=== PATIENT | female | born 1990 | race Hispanic/Latino ===

== ENCOUNTER 2017-10-29 15:07 | Inpatient (IN) | payer OTHER ==
[~2017-10-29] VITALS: Ht 157.5 cm; Wt 117.0 kg
[~2017-10-29 15:07] MED LIST: ASPIR 8181 MG PO; HEPARIN SO5000 UNIT/ IV; HYDROCODON-ACE1 EA10 PO; METFORMIN HCL1000 MG PO
[2017-10-29 16:28] LABS: BILIRUBIN,URINE 1+ (NEGATIVE); KETONES,URINE 3+ (NEGATIVE); LEUKOCYTE ESTERASE ,URINE 1+ (NEGATIVE); NITRITE,URINE NEGATIVE (NEGATIVE); URINE UROBILINOGEN 1 mg/dL (0.2 - 1)
[2017-10-29 16:30] LABS: CLARITY,URINE SL CLOUDY (CLEAR); COLOR,URINE AMBER (YELLOW); PROTEIN,URINE DIPSTICK TRACE (NEGATIVE)
[2017-10-29 16:31] LABS: PREGNANCY TEST, URINE NEGATIVE (NEGATIVE)
[2017-10-29 16:40] LABS: RBC,URINE >50 /HPF (0-5); WBC,URINE (MAN) 0-5 /HPF (0-5)
[2017-10-29 16:42] LABS: BACTERIA,URINE MANY /HPF; EPITHELIAL CELLS,URINE MODERATE /LPF; TRANSITIONAL EPI CELLS,URINE FEW
[2017-10-29] MEDS ORDERED: MORPHINE SULFATE 2 MG/ML SYR IV STA (16:55)
[2017-10-29] MEDS ORDERED: SODIUM CHLORIDE 0.9% 1000ML 1,000 ML IV STA ×2 (17:04→21:25)
[2017-10-29] MEDS ORDERED: HYDROMORPHONE 2MG/ML INJ IV ONE ×2 (17:15→19:15)
[2017-10-29 17:50] LABS: BASOPHILS % 0.3 % (0.0-1.0); EOSINOPHILS % 0.2 % (0.0-6.0); HEMATOCRIT 42.1 % (34.2-44.1); HEMOGLOBIN 14.2 g/dL (12.0-16.0); LYMPHOCYTES # (AUTO) 1.7 (1.0-3.2); LYMPHOCYTES % 19.7 % (18.0-39.1); MEAN CORPUSCULAR HEMOGLOBIN 29.7 pg (28-32); MEAN CORPUSCULAR HGB CONC 33.7 g/dL (31-35); MEAN CORPUSCULAR VOLUME 88.1 fL (81-99); MONOCYTES # (AUTO) 0.8 (0.2-0.8); MONOCYTES % 9.4 % (4.4-11.3); NEUTROPHILS % 68.8 % (38.7-80.0); PLATELET COUNT 293 x10e3/uL (140-360); RED BLOOD COUNT 4.78 x10e6/uL (3.6-5.1); RED CELL DISTRIBUTION WIDTH 13.2 % (11.7-14.4)
[2017-10-29 18:04] LABS: ALBUMIN 4.6 g/dL (3.5-5.0); ALBUMIN/GLOBULIN RATIO 1.2 (0.8-2.0); ANION GAP 16.8 mmol/L (8-16); CALCIUM 10.2 mg/dL (8.4-10.2); CREATININE, SERUM 1.15 mg/dL (0.57-1.11); POTASSIUM 3.8 mmol/L (3.5-5.1)
--- NOTE | 2017-10-29 18:21 | Diagnostic Imaging Report ---
PROCEDURE: CT ABDOMEN AND PELVIS WITHOUT CONTRAST TECHNIQUE: The abdomen and pelvis were scanned utilizing a multidetector helical scanner from the diaphragm to the lesser trochanter after the oral administration of water. No IV contrast was administered per protocol. Coronal and sagittal multiplanar reformations were obtained. COMPARISON: Patients [facility], CT, CT ABDOMEN/PELVIS , 01/21/2014, 22:23. INDICATIONS: RIGHT SIDE FLANK PAIN, STONE PROTOCOL FINDINGS: ABSENCE OF INTRAVENOUS CONTRAST DECREASES SENSITIVITY FOR DETECTION OF FOCAL LESIONS AND VASCULAR PATHOLOGY. LOWER THORAX: Unremarkable HEPATOBILIARY: A wedge-shaped hypodensity along the falciform ligament likely represents focal fatty infiltration (series 3, image 47). No other focal lesions. No biliary ductal dilation. Gallbladder is unremarkable. SPLEEN: No splenomegaly. PANCREAS: No focal masses or ductal dilatation. ADRENALS: No adrenal nodules. KIDNEYS/URETERS: 3 mm calculus in the distal right ureter just proximal to the right UVJ (series 3, image 140), which results in mild right hydronephrosis. Punctate, nonobstructing calculus in the interpolar region of the right kidney (series 3, image 47 and coronal image 82). No other renal or ureteral calculi. No left hydronephrosis or obstruction. 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 No renal contour abnormalities. PELVIC ORGANS/BLADDER: Bladder is unremarkable, without focal lesions or calculi. The uterus is unremarkable. No adnexal masses.. PERITONEUM / RETROPERITONEUM: No free air or fluid. LYMPH NODES: No lymphadenopathy. VESSELS: Unremarkable for noncontrast exam. GI TRACT: No bowel dilation or evidence of obstruction. No pericolonic inflammatory changes. Postoperative changes in the stomach. BONES AND SOFT TISSUES: No aggressive lytic lesion. Soft tissues are unremarkable.. IMPRESSION: 1. 3 mm mildly obstructing calculus in the distal right ureter just proximal to the right UVJ, which results in mild right hydronephrosis. 2. Punctate nonobstructing calculus in the interpolar region of the right kidney. No other renal or ureteral calculi. No left hydronephrosis or obstruction. 3. Increased density of the left renal pyramids likely representing Vernon's plaques, which are predisposing factors for renal stone formation. Chuck Smalls M.D. Dictated by: Chuck Smalls M.D. on 10/29/2017 at 18:30 Electronically approved by: Chuck Smalls M.D. on 10/29/2017 at 18:30
[2017-10-29] MEDS ORDERED: ONDANSETRON HCL INJ 2 MG/ML VIAL IV STA (19:04)
[2017-10-29] MEDS ORDERED: PROMETHAZINE 12.5MG/ NACL 0.9% 12.5 MG/50 ML BAG IV PRN (20:30)
[2017-10-29] MEDS: CEFTRIAXONE SOD 1 GM VIAL IV SCH (20:37)
[2017-10-29] MEDS: SODIUM CHLORIDE 0.9% 1000ML 1,000 ML IV SCH (20:37)
[2017-10-29] MEDS ORDERED: DILTIAZEM HCL 5 MG/ML 5 ML VIAL IV STA ×2 (21:25→22:01)
[2017-10-29 22:00] LABS: INR 1.05; PROTHROMBIN TIME 14.2 seconds (11.9-14.5)
[2017-10-29 22:01] LABS: PARTIAL THROMBOPLASTIN TIME 26.1 seconds (23.8-35.5)
[2017-10-29 22:08] LABS: CREATINE KINASE 65 IU/L (29-168); MAGNESIUM 1.8 MG/DL (1.3-2.1)
--- NOTE | 2017-10-29 22:13 | Diagnostic Imaging Report ---
EXAM: CHEST SINGLE (PORTABLE), AP 1 view ORDER DATE: 10/29/2017 9:25 PM Time stamp on exam: 2138 hours INDICATION: New onset A. fib COMPARISON: None FINDINGS: LINES/TUBES: None LUNGS: No consolidations or edema. Mild bibasilar atelectasis. PLEURA: No effusions or pneumothorax. HEART AND MEDIASTINUM: Normal size and contour. BONES AND SOFT TISSUES: No acute findings. IMPRESSION: Mild bibasilar atelectasis. Signed by: Dr. Hui Villalobos M.D. on 10/29/2017 10:09 PM
[2017-10-29] MEDS ORDERED: DILTIAZEM HCL 100 ML IV SCH (22:15)
[2017-10-29 22:29] LABS: THYROID STIMULATING HORMONE 5.253 uIU/mL (0.350-4.940)
[2017-10-29] MEDS ORDERED: METOPROLOL TARTRATE INJ 1 MG/ML VIAL IV ONE (22:30)
--- OUTSIDE RECORDS SUMMARY | 2017-10-29 22:35 | XMS REPORT ---
Author Author [facility] Address Unknown Phone Unavailable Care Team Providers Care Shells Inspector Name Role Phone NASREEN MILLER Unavailable Unavailable Problems This patient has no known problems. Allergies, Adverse Reactions, Alerts This patient has no known allergies or adverse reactions. Medications This patient has no known medications. Results Test Description Test Time Test Comments Text Results Atomic Results Result Comments CHEST SINGLE (PORTABLE) [place] [address] Patient Name: CAROLYN MOSES I MR #: [id number] : 1990 Age/Sex: 27/F Req #: [id number] Adm Physician: Ordered by: NASREEN MILLER MD Report #: [id number] Location: ER Room/Bed: Procedure: [id number] DX/CHEST SINGLE (PORTABLE) Exam Date: Exam Time: REPORT STATUS: Signed EXAM: CHEST SINGLE (PORTABLE ), AP 1 view ORDER DATE: 10/29/2017 9:25 PM Time stamp on exam: 2138 hours INDICATION: New onset A. fib COMPARISON: None FINDINGS: LINES/TUBES: None LUNGS: No consolidations or edema. Mild bibasilar atelectasis. PLEURA: No effusions or pneumothorax. HEART AND MEDIASTINUM: Normal size and contour. BONES AND SOFT TISSUES: No acute findings. IMPRESSION: Mild bibasilar atelectasis. Signed by: Dr. Augusto Villalobos M.D. on 10/29/2017 10:09 PM Dictated By: AUGUSTO VILLALOBOS MD 08 Transcribed By: IVORY on 2208 COPY TO: NASREEN MILLER MD CT ABDOMEN/PELVIS WO [place] [address] Patient Name: CAROLYN MOSES I MR #: [id number] : 1990 Age/Sex: 27/F Req #: [id number] Adm Physician: Ordered by: JOSH THOMSAON Report #: [id number] Location: ER Room/Bed: Procedure: [id number] CT/CT ABDOMEN/PELVIS WO Exam Date: Exam Time: REPORT STATUS: Signed PROCEDURE: CT ABDOMEN AND PELVIS WITHOUT CONTRAST TECHNIQUE: The abdomen and pelvis were scanned utilizing a multidetector helical scanner from the diaphragm to the lesser trochanter after the oral administration of water. No IV contrast was administered per protocol. Coronal and sagittal multiplanar reformations were obtained. COMPARISON: [facility], CT, CT ABDOMEN/ PELVIS WO, 01/21/2014, 22:23. INDICATIONS: RIGHT SIDE FLANK PAIN, STONE PROTOCOL FINDINGS: ABSENCE OF INTRAVENOUS CONTRAST DECREASES SENSITIVITY FOR DETECTION OF FOCAL LESIONS AND VASCULAR PATHOLOGY. LOWER THORAX: Unremarkable HEPATOBILIARY: A wedge-shaped hypodensity along the falciform ligament likely represents focal fatty infiltration ( series 3, image 47). No other focal lesions. No biliary ductal dilation. Gallbladder is unremarkable. SPLEEN: No splenomegaly. PANCREAS: No focal masses or ductal dilatation. ADRENALS: No adrenal nodules. KIDNEYS/ URETERS: 3 mm calculus in the distal right ureter just proximal to the right UVJ (series 3, image 140), which results in mild right hydronephrosis. Punctate, nonobstructing calculus in the interpolar region of the right kidney (series 3, image 47 and coronal image 82). No other renal or ureteral calculi. No left hydronephrosis or obstruction. 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 No renal contour abnormalities. PELVIC ORGANS/BLADDER: Bladder is unremarkable, without focal lesions or calculi. The uterus is unremarkable. No adnexal masses.. PERITONEUM / RETROPERITONEUM: No free air or fluid. LYMPH NODES : No lymphadenopathy. VESSELS: Unremarkable for noncontrast exam. GI TRACT: No bowel dilation or evidence of obstruction. No pericolonic inflammatory changes. Postoperative changes in the stomach. BONES AND SOFT TISSUES: No aggressive lytic lesion. Soft tissues are unremarkable.. IMPRESSION: 1. 3 mm mildly obstructing calculus in the distal right ureter just proximal to the right UVJ, which results in mild right hydronephrosis. 2. Punctate nonobstructing calculus in the interpolar region of the right kidney. No other renal or ureteral calculi. No left hydronephrosis or obstruction. 3. Increased density of the left renal pyramids likely representing Vernon's plaques, which are predisposing factors for renal stone formation. Oli Smalls M.D. Dictated by: Oli Smalls M.D. on 10/29/2017 at 18:30 Electronically approved by: Oli Smalls M.D. on 10/29/2017 at 18:30 Dictated By: OLI SMALLS MD 1830 Transcribed By: MELIDA on 10/29/17 1830 COPY TO: JOSH THOMASON
[2017-10-29] MEDS ORDERED: SODIUM CHLORIDE 0.9% 250ML 250 ML ONE (23:35)
[2017-10-29] MEDS ORDERED: DILTIAZEM HCL IV 5MG/ML 25 ML VIAL ONE (23:36)
[2017-10-30] MEDS: SODIUM CHLORIDE 0.9% 1000ML 1,000 ML IV SCH ×2 (00:10→07:45)
[2017-10-30] MEDS ORDERED: DILTIAZEM HCL IV SCH (01:00)
[2017-10-30] MEDS ORDERED: SODIUM CHLORIDE 0.9% IV SCH (01:00)
[2017-10-30] MEDS ORDERED: METOPROLOL TARTRATE INJ 1 MG/ML VIAL IV ONE (01:30)
[2017-10-30] MEDS ORDERED: METOPROLOL TARTRATE 25 MG TAB PO ONE (01:30)
[2017-10-30] MEDS ORDERED: AMIODARONE HCL 150MG 100 ML IV ONE (02:00)
[2017-10-30] MEDS ORDERED: HEPARIN SOD (PORCINE) 5,000 UNIT/ML VIAL IV ONE (02:00)
[2017-10-30] MEDS ORDERED: DIGOXIN INJ 0.25 MG/ML 2 ML AMP IV ONE ×2 (02:00→11:00)
[2017-10-30] MEDS ORDERED: ASPIRIN 81 MG CHEW TAB PO ONE (02:00)
[2017-10-30] MEDS ORDERED: HEPARIN 25,000U/0.45% NS 250ML 25,000 UNIT in SODIUM CHLORIDE 0.9% 250ML 0 ML IV SCH (02:00)
[2017-10-30] MEDS ORDERED: AMIODARONE HCL 100 ML IV ONE (02:28)
[2017-10-30] MEDS ORDERED: AMIODARONE 900MG 500 ML IV SCH ×2 (02:30→08:30)
[2017-10-30] MEDS: ONDANSETRON HCL INJ 2 MG/ML VIAL IV PRN ×4 (03:08→14:00)
[2017-10-30] MEDS: HYDROMORPHONE 2MG/ML INJ IV PRN ×4 (03:08→14:25)
[2017-10-30 05:25] LABS: BASOPHILS % 0.4 % (0.0-1.0); EOSINOPHILS # (AUTO) 0.1 (0.0-0.4); EOSINOPHILS % 0.9 % (0.0-6.0); HEMATOCRIT 32.5 % (34.2-44.1); HEMOGLOBIN 10.7 g/dL (12.0-16.0); LYMPHOCYTES # (AUTO) 1.7 (1.0-3.2); LYMPHOCYTES % 21.1 % (18.0-39.1); MEAN CORPUSCULAR HEMOGLOBIN 29.7 pg (28-32); MEAN CORPUSCULAR HGB CONC 32.9 g/dL (31-35); MEAN CORPUSCULAR VOLUME 90.3 fL (81-99); MONOCYTES # (AUTO) 0.9 (0.2-0.8); MONOCYTES % 11.9 % (4.4-11.3); NEUTROPHILS # (AUTO) 5.2 (2.1-6.9); NEUTROPHILS % 65.3 % (38.7-80.0); PLATELET COUNT 208 x10e3/uL (140-360); RED CELL DISTRIBUTION WIDTH 13.2 % (11.7-14.4)
[2017-10-30 05:43] LABS: CREATINE KINASE 60 IU/L (29-168)
[2017-10-30 05:45] LABS: ALANINE AMINOTRANSFERASE 18 IU/L (0-55); ALBUMIN 3.2 g/dL (3.5-5.0); ALBUMIN/GLOBULIN RATIO 1.2 (0.8-2.0); ALKALINE PHOSPHATASE 86 IU/L (40-150); ANION GAP 10.8 mmol/L (8-16); BLOOD UREA NITROGEN 13 mg/dL (7-26); BUN/CREATININE RATIO 13 (6-25); CALCIUM 8.3 mg/dL (8.4-10.2); CARBON DIOXIDE 19 mmol/L (22-29); CHLORIDE 114 mmol/L (98-107); CREATININE, SERUM 1.04 mg/dL (0.57-1.11); EST GLOMERULAR FILTRATION RATE > 60 ML/MIN (60-); GLUCOSE 108 mg/dL (74-118); POTASSIUM 3.8 mmol/L (3.5-5.1); SODIUM 140 mmol/L (136-145)
[2017-10-30] MEDS: CEFTRIAXONE SOD 1 GM VIAL IV SCH ×2 (07:45→20:43)
[2017-10-30] MEDS ORDERED: APIXAB 2.5 MG TABLET PO SCH (11:00)
[2017-10-30] MEDS ORDERED: AMIODARONE HCL 150 MG/100 ML BAG IV ONE ×2 (11:00→12:00)
--- NOTE | 2017-10-30 14:59 | Consultation ---
DATE OF CONSULTATION: October 30, 2017 CARDIOLOGY CONSULTATION REASON FOR CONSULTATION: Atrial fibrillation. HISTORY OF PRESENT ILLNESS: Ms. Cox is a 27-year-old female with a history of kidney stones, who comes in with abdominal pain consistent with a kidney stone as diagnosed by her CAT scan. While in the emergency room, she converted to rapid atrial fibrillation, rates as high as 200 beats per minute. She had palpitations and some chest tightness with this. She has no past history of heart disease or atrial fibrillation in her or her family. PAST MEDICAL HISTORY: Kidney stones. SOCIAL HISTORY: Patient does not smoke or drink. 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 ALLERGIES: DRUG ALLERGIES INCLUDE TRAMADOL. REVIEW OF SYSTEMS: Negative except as dictated in the history of present illness. PHYSICAL EXAMINATION: VITALS: Afebrile, heart rate 100, blood pressure 128/79, and O2 sats 98%. CARDIOVASCULAR: Irregularly irregular rhythm. No murmurs. LUNGS: Clear to auscultation bilaterally. ABDOMEN: Soft. Diffusely tender. LABORATORY DATA: Hemoglobin is 10.7. Creatinine 1.04. Cardiac enzymes are negative. TSH is 5.2. Chest x-ray shows no acute abnormalities besides mild bibasilar atelectasis. Electrocardiogram and telemetry show atrial fibrillation. ASSESSMENT: Atrial fibrillation with rapid ventricular response. RECOMMENDATIONS: Ms. Cox has had persistent atrial fibrillation. She will be anticoagulated with Eliquis in addition to the rate and rhythm control with amiodarone and beta-tigist as well as digoxin. Hopefully, she will convert to sinus rhythm. If she does not convert to sinus rhythm in the next 24 hours, she will require transesophageal echocardiogram with electrical cardioversion. This was discussed with the patient. I thank Dr. Rico for this consultation. Job#: [id number] VAS
[2017-10-30 15:59] LABS: CREATINE KINASE 67 IU/L (29-168)
[2017-10-30] MEDS ORDERED: APIXABAN 5 MG TABLET PO SCH (17:00)
[2017-10-30] MEDS: FAMOTIDINE 20 MG TAB PO SCH (17:21)
[2017-10-30] MEDS: METOPROLOL TARTRATE 25 MG TAB PO SCH (17:21)
--- NOTE | 2017-10-30 17:29 | Diagnostic Imaging Report ---
EXAM: Abdomen, one view INDICATION: Pain. COMPARISON: None available. FINDINGS: LINES: None. Bowel: No air fluid levels.. No pneumoperitoneum.. Moderate amount of retained feces and air are noted in the colon and rectum. No calcifications project over the renal shadows, expected course of the ureters bilaterally, and bladder. Phleboliths are present in the pelvis Soft tissues: Normal. Bones: No acute osseous abnormality. Impression: No acute radiographic abnormality. Signed by: Dr. Rivera Whitney M.D. on 10/30/2017 5:26 PM
[2017-10-30] MEDS: APIXABAN 5 MG TABLET PO SCH (17:51)
--- NOTE | 2017-10-30 17:59 | History and Physical ---
The patient goes to [facility]. CHIEF COMPLAINT: Right flank. HISTORY OF PRESENT ILLNESS: Ms. Cox is a 27-year-old lady morbidly obese who presents with right flank pain for several hours prior to admission which she says is very similar to what she has felt before with a previous kidney stone. After the patient received some Rocephin and some pain medication, she converted into atrial fibrillation with rapid ventricular response with heart rate as high as 160. She was given metoprolol, digoxin, and amiodarone, remains in AFib. Her last rate was 88, still irregularly irregular. REVIEW OF SYSTEMS: She has had some fever and chills in the last 24 hours. She denies weight loss. She denies sinus congestion or sore throat. She denies chest pain or palpitations other than what has occurred here in the ER. She now is having palpitations. She denies shortness of breath, wheezing, or cough. She denies abdominal pain, nausea, vomiting, or melena. She does have right flank pain and denies dysuria. She denies bleeding or bruising. She denies joint pain or swelling. She denies headache, vertigo, or loss of consciousness. She denies depression, agitation, homicide, or suicidal ideation. PAST MEDICAL HISTORY: Significant for previous kidney stone and polycystic ovary syndrome. MEDICATIONS: Aspirin 81 mg daily and metformin 1000 mg twice daily. PAST SURGICAL HISTORY: She has a history of left salpingectomy a few years ago. She has also had vertical gastric sleeve for obesity. 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 ALLERGIES: SHE HAS A STATED ALLERGY TO TRAMADOL AND CINNAMON. FAMILY HISTORY: Unremarkable. SOCIAL HISTORY: The patient is . Sami is her primary language. She does not smoke, drink, or use illegal drugs. She works in a doctor's office. She is independently functioning. PHYSICAL EXAM PSYCHIATRIC: She is awake, alert, and oriented x3 with normal mood and affect. CONSTITUTIONAL: She is morbidly obese with a BMI of 42.2 for a weight of 231 pounds. She is in no acute distress. VITAL SIGNS: Blood pressure 109/44, initially was 130/80. Pulse 88 and irregularly irregular. She had a max heart rate of 165 earlier this morning. She has a respiratory rate of 16. O2 sat 100% on room air. Temperature 98.2. HEENT: Her head is atraumatic. Her eyes are anicteric with clear conjunctiva. Ears and nares are without erythema or discharge. Oropharynx is clear. NECK: Supple, with no mass or thyromegaly. LYMPHATIC SYSTEM: She has no palpable cervical, axillary, or inguinal adenopathy. CARDIOVASCULAR: Her heart has an irregularly irregular rhythm. Heart rate is currently about 88 in AFib on the monitor. She has no murmur. She has no carotid bruit. She has no peripheral edema. She has palpable dorsal pedal pulses. RESPIRATORY: Clear to auscultation and percussion with normal respiratory effort. GASTROINTESTINAL: Her abdomen is soft without organomegaly, masses, or tenderness. She does have some tenderness in the right costovertebral angle. CUTANEOUS: Her skin is warm to touch with no rash or skin breakdown. MUSCULOSKELETAL: Joints are normal in alignment without erythema or swelling. She has no calf tenderness. NEUROLOGIC: Nonfocal with intact cranial nerves and no motor or sensory deficits. DIAGNOSTIC STUDIES: Chest x-ray shows bibasilar atelectasis. CT of the abdomen shows a 3-mm partially obstructing distal right ureteral stone with some hydronephrosis. Her UA has greater than 50 red cells, 0 to 5 white cells, many bacteria, and 1+ leukocyte esterase. Her echocardiogram showed normal chamber sizes, normal valvular function, and normal wall motion with a normal ejection fraction of 60%. Her EKG shows AFib with rapid ventricular response at 157. D-dimer is. 0.38 which is normal. The rest of her coags are normal. Her chemistry profile showed normal electrolytes. CO2 21, glucose 97, creatinine 1.15, and BUN 15 with calcium 10.2 and GFR of 56. Transaminases, bilirubin, and alk phos are normal. Magnesium is 1.8. CBC shows a white count of 8.71 with 69% neutrophils and 20% lymphocytes, hemoglobin 14.2, hematocrit 42.1, and platelet count 293,000. Lactic acid 19.2 which is normal. Troponin less than 0.001 and less than 0.001. TSH 5.253 which is slightly elevated. IMPRESSION AND PLAN 1. Right distal obstructing ureteral calculi. The patient is getting IV fluids. The stone is likely to pass given time. She is getting IV pain medication, p.o. Flomax and urology has been consulted and is following the patient. 2. New-onset atrial fibrillation with rapid ventricular response. The patient has been started on IV amiodarone protocol with a loading dose, has received a couple of doses of IV metoprolol as well as IV digoxin trying to control her rate which is now as noted above around 88 and irregular. Cardiology has been consulted to manage that, and for prophylaxis, the patient was started on Eliquis for the atrial fibrillation by Cardiology which worked as a DVT prophylaxis as well as stroke prophylaxis and Pepcid for GI prophylaxis. Job#: [id number] SAK
[2017-10-30] MEDS ORDERED: AMIODARONE HCL 200 MG TAB PO ONE (23:00)
[2017-10-31] VITALS: BP 129/59
[2017-10-31 00:30] VITALS: BP 129/59
[2017-10-31 04:00] VITALS: BP 118/55
[2017-10-31] MEDS: FAMOTIDINE 20 MG TAB PO SCH (07:30)
[2017-10-31 08:00] VITALS: BP 117/75
[2017-10-31] MEDS ORDERED: AMIODARONE HCL 200 MG TAB PO SCH (09:00)
[2017-10-31] MEDS: APIXABAN 5 MG TABLET PO SCH (09:00)
[2017-10-31] MEDS: METOPROLOL TARTRATE 25 MG TAB PO SCH (09:00)
[2017-10-31] MEDS: CEFTRIAXONE SOD 1 GM VIAL IV SCH (10:58)
[2017-10-31 11:39] LABS: BASOPHILS % 0.2 % (0.0-1.0); EOSINOPHILS # (AUTO) 0.1 (0.0-0.4); EOSINOPHILS % 1.4 % (0.0-6.0); HEMATOCRIT 35.3 % (34.2-44.1); HEMOGLOBIN 11.7 g/dL (12.0-16.0); LYMPHOCYTES # (AUTO) 1.3 (1.0-3.2); LYMPHOCYTES % 22.5 % (18.0-39.1); MEAN CORPUSCULAR HEMOGLOBIN 29.6 pg (28-32); MEAN CORPUSCULAR HGB CONC 33.1 g/dL (31-35); MEAN CORPUSCULAR VOLUME 89.4 fL (81-99); MONOCYTES # (AUTO) 0.7 (0.2-0.8); MONOCYTES % 11.3 % (4.4-11.3); NEUTROPHILS # (AUTO) 3.8 (2.1-6.9); NEUTROPHILS % 64.4 % (38.7-80.0); PLATELET COUNT 232 x10e3/uL (140-360); RED BLOOD COUNT 3.95 x10e6/uL (3.6-5.1); RED CELL DISTRIBUTION WIDTH 13.2 % (11.7-14.4)
[2017-10-31 11:50] LABS: ANION GAP 12.6 mmol/L (8-16); BLOOD UREA NITROGEN 5 mg/dL (7-26); BUN/CREATININE RATIO 6 (6-25); CALCIUM 8.5 mg/dL (8.4-10.2); CARBON DIOXIDE 21 mmol/L (22-29); CHLORIDE 110 mmol/L (98-107); CREATININE, SERUM 0.88 mg/dL (0.57-1.11); EST GLOMERULAR FILTRATION RATE > 60 ML/MIN (60-); GLUCOSE 84 mg/dL (74-118); MAGNESIUM 1.9 MG/DL (1.3-2.1); POTASSIUM 3.6 mmol/L (3.5-5.1); SODIUM 140 mmol/L (136-145)
[2017-10-31 12:00] VITALS: BP 109/66
[2017-10-31] MEDS ORDERED: AMIODARONE HCL200 MG PO (14:04)
[2017-10-31] MEDS ORDERED: CEFUROXIME250 MG PO (14:04)
[2017-10-31] MEDS ORDERED: Apixaban PO (14:04)
[2017-10-31] MEDS ORDERED: FAMOTIDINE20 MG PO (14:04)
[2017-10-31] MEDS ORDERED: LOPRESSOR25 MG PO (14:04)
--- NOTE | 2017-10-31 15:35 | Progress Note ---
DATE: October 31, 2017 CARDIOLOGY PROGRESS NOTE SUBJECTIVE: Ms. Cox feels well. She has converted to sinus rhythm. OBJECTIVE VITAL SIGNS: Afebrile. Heart rate 94, blood pressure 117/75, O2 sat 96%. CARDIOVASCULAR: Regular rhythm. No murmurs or gallops. LUNGS: Clear to auscultation bilaterally. ABDOMEN: Distended. TELEMETRY: Shows sinus rhythm. Hemoglobin is 11.7, serum creatinine is normal. TSH is 5.2. Cardiac enzymes are negative. ASSESSMENT: Paroxysmal atrial fibrillation. RECOMMENDATIONS: Ms. Cox is stable for discharge on Eliquis, amiodarone and metoprolol. These prescriptions were handed to the patient. The patient will follow up with her primary care physician/visual education teacher at [facility]. Job#: [id number]
--- NOTE | 2017-11-01 05:07 | Consultation ---
DATE OF CONSULTATION: October 29, 2017 UROLOGY CONSULTATION Consultation called by the emergency room. UROLOGICAL CONSULTATION AND REASON FOR CONSULTATION: Kidney stone. HISTORY OF PRESENT ILLNESS: Mrs. Cox is a 27-year-old female with a history of previous kidney stones. Denied prior intervention. Now presents with acute onset of sharp severe right-sided flank pain. Denied fevers. No chills. No nausea or vomiting. PAST MEDICAL HISTORY: As above. MEDICATIONS: Please see MAR. ALLERGIES: NKDA. SOCIAL HISTORY: Denied smoking or drinking. FAMILY HISTORY: Denied urologic stones. No malignancies. REVIEW OF SYSTEMS: Noncontributory to . PHYSICAL EXAMINATION GENERAL: A middle-aged female in no acute distress. Currently stable. VITALS: Stable. HEENT: Sclerae anicteric. NECK: Supple. BACK: Without costovertebral angle tenderness bilaterally. ABDOMEN: Soft, nontender or nondistended. No mass. No palpable hernias. No palpable lymphadenopathy. : Normal female external genitalia. EXTREMITIES: Without edema. No cyanosis. PSYCH: Appropriate mood. SKIN: Intact. Normal color. PERTINENT LABORATORY: CT scan showing a 3 mm right distal ureteral stone and hydronephrosis. CBC normal. Creatinine 1.1. Urinalysis with 50-100 reds. Beta HCG negative. IMPRESSION 1. Nausea and vomiting. 2. Right renal calculus. 3. Hydronephrosis. 4. Intractable colic. 5. Microscopic hematuria. PLAN: Will employ a brief trial of passage. Thank you for allowing me to participate in the care of your patient. Will be happy to follow her with you. Job#: [id number] JERRY
--- NOTE | 2017-11-01 10:05 | Discharge Summary ---
CONSULTANTS 1. Dr. Jose Luis Parry, cardiology. 2. Dr. Orville Germain, urology. The patient has been cleared by both disciplines, Dr. Parry and Dr. Orville Germain, to be discharged today. This is a 27-year-old female who came into the emergency room with right flank pain. Patient is a morbidly obese female who presented to the emergency room with right flank pain prior to coming into the emergency room. The patient reportedly has had various symptoms of kidney stones in the past. Patient received Rocephin and some pain medications. The patient changed to atrial fibrillation with rapid ventricular response with a heart rate of 160. The patient was given metoprolol, digoxin and amiodarone and remained in atrial fib. Her last rate was 88 while she was in the emergency room. Today's heart rate is 94. The patient will need to be seen with a boring mill set up operator this week. I have also discussed the patient following up with her PCP and urologist with [facility], which is her PCP home base. The patient had a chest x-ray done on admission that showed bibasilar atelectasis. CT of the abdomen showed 3-mm, partially obstructing, distal right ureteral stone with some hydronephrosis. The stone was passed, according to Dr. Germain, on Wednesday. TSH was 5.25, which is mildly elevated. Will need further studies on this for treatment of hypothyroidism. The patient today is requesting to be discharged. I have discussed the discharge plan with the patient. She agrees to be discharged. D-dimer was also done at 0.38, which is normal. The rest of the coags are normal. DISCHARGE DIAGNOSES 1. Right distal obstructing ureteral calculi that has been passed. The patient was encouraged to take plenty of fluids to continue hydration. 2. New onset of atrial fibrillation with rapid ventricular response, which is now stable. 3. Morbidly obese. Dr. Parry has left prescriptions for: 1. Eliquis 5 mg 1 p.o. b.i.d., #60. 2. Amiodarone 200 mg 1 p.o. b.i.d. 3. Metoprolol 25 mg 1 p.o. b.i.d. Dictated by: Willis Beltran NP MARIPOSA HASTINGS MD Job#: [id number]
== END 2017-10-31 14:17 | disposition home or self-care (01) | DRG 694 ==
LOC: ER 15:07 → ERHOLD 22:33 → MED/SURG 10-31 00:07
PROVIDERS: ADMIT Internal Medicine; ATTEND Internal Medicine
DX: N13.2 Hydronephrosis with renal and ureteral calculous obstruction (principal); E66.01 Morbid (severe) obesity due to excess calories; Z68.42 Body mass index [BMI] 45.0-49.9, adult; E03.9 Hypothyroidism, unspecified; I48.91 Unspecified atrial fibrillation; R10.84 Generalized abdominal pain; Z98.84 Bariatric surgery status; R31.29 Other microscopic hematuria
CPT/HCPCS: 36415; 71045; 74018; 74176; 80048; 80053; 81001; 81025; 82550; 82553; 83605; 83735; 83880; 84443; 84484; 85025; 85379; 85610; 85730; 87040; 87086; 93005; 93306; 96360; 96374; 99284; J0696; J1160; J2405; J2550; J7030; J7050

== ENCOUNTER 2018-01-05 14:19 | Emergency (ER) | payer OTHER ==
[~2018-01-05] VITALS: Ht 157.5 cm; Wt 103.4 kg
[~2018-01-05 14:19] MED LIST changes: +AMIODARONE HCL200 MG PO; +Apixaban PO; +CEFUROXIME250 MG PO; +FAMOTIDINE20 MG PO; +LOPRESSOR25 MG PO
--- OUTSIDE RECORDS SUMMARY | 2018-01-05 14:22 | XMS REPORT | Continuity of Care Document ---
Author Author [facility] Organization [facility] Address [address] [place] [address] Phone Unavailable Care Team Providers Care Chief Guard Name Role Phone NO, PCP PCP Unavailable Insurance Providers Guarantor Annmarie Cox Address [address] [place] [address] Payer [facility] Policy Number [id number] Subscriber's Name Carolyn Cox I Relationship 18 Self / Same As Patient Group Number [id number] Group Name [employer] Effective Date 11 Advance Directives Directive Response Recorded Date/Time Does the patient have an advance directive? No 10/31/17 12:30am If yes, is advance directive on file with [facility]? No 10/31/17 12:30am If not on file with [facility] will patient provide a copy? No 10/31/17 12:30am Do you have a Directive to Physician? No 10/29/17 5:43pm Do you have a Medical Power of Nurse Unit Manager? No 10/29/17 5:43pm Do you have an out of hospital Do Not Resuscitate Order? No 10/29/17 5:43pm Do you have any special needs we should be aware of? No 10/29/17 5:43pm Do you have a support person here with you today? Yes 10/29/17 5:43pm Did patient receive Notice of Privacy Practices? Yes 10/29/17 5:43pm Did patient receive patient rights and responsibilities? Yes 10/29/17 5:43pm Problems Medical Problem Onset Date Status Ectopic 05/05/2015 Acute Ureterolithiasis Unknown Medications Current Home Medications Medication Dose Units Route Directions Days Qty Instructions Start Date Amiodarone Hcl 200 Mg Tablet 200 Mg Oral Twice A Day 60 Days Apixaban 5 Mg Tablet 5 Mg Oral Twice A Day 60 Days 10/31/17 Aspirin (Aspir 81) 81 Mg Tablet.dr 81 Mg Oral Daily Cefuroxime Axetil (Cefuroxime) 250 Mg Tablet 500 Mg Oral Every 12 Hours 10 Days 10/31/17 Famotidine 20 Mg Tab 20 Mg Oral Twice Daily Before Meals 60 Days Heparin Sodium,Porcine (Heparin Sodium) 5,000 Unit/1 Ml Vial 5,000 Units Intraven Twice A Day Hydrocodone Bit/Acetaminophen (Hydrocodon-Acetaminophen 5-300) 1 Each Tablet 1 Tab Oral Every 4 Hours as needed for Pain Metformin Hcl 1,000 Mg Tablet 2,000 Mg Oral Daily Metoprolol Tartrate (Lopressor) 25 Mg Tab 25 Mg Oral Twice A Day 60 Days 10/31/17 Social History Social History Problem Response Recorded Date/Time Onset Date Status Hx Psychiatric Problems No 10/31/2017 12:30am Not Applicable Not Applicable Hx Eating Disorder No 10/31/2017 12:30am Not Applicable Not Applicable Hx Substance Use Disorder No 10/31/2017 12:30am Not Applicable Not Applicable Hx Depression No 10/31/2017 12:30am Not Applicable Not Applicable Hx Alcohol Use No 10/31/2017 12:30am Not Applicable Not Applicable Hx Substance Use Treatment No 10/31/2017 12:30am Not Applicable Not Applicable Hx Physical Abuse No 10/31/2017 12:30am Not Applicable Not Applicable Smoking Status Start Date Stop Date Never Smoker Hospital Discharge Instructions No hospital discharge instruction information available. Plan of Care Discharge Date 10/31/17 2:17pm Disposition HOME, SELF-CARE Instructions/Education Provided Kidney Stones Prescriptions See Medication Section Additional Instructions/Education diabetic low fat low zan diet FOLLOW UP WITH DR HASTINGS WITHIN ONE WEEK. FOLLOW UP WITH DR MODI WITHIN ONE WEEK. Functional Status Query Response Date Recorded Assistive Devices None October 31, 2017 12:30am Ambulation Ability Independent October 31, 2017 12:30am Toileting Ability Independent October 31, 2017 10:14am Allergies, Adverse Reactions, Alerts Allergen Type Severity Reaction Status Last Updated Cinnamon Allergy Severe ANAPHYLAXIS Active 11/03/12 Tramadol Adverse Reaction Unknown VOMITING Active 10/29/17 Immunizations No immunization information available. Vital Signs Acute Vital Signs Vital Response Date/Time Temperature (Fahrenheit) 98.0 degrees F (97.6 - 99.5) 10/31/2017 12:00pm Pulse Pulse Rate (adult) 76 bpm (60 - 90) 10/31/2017 12:00pm Respiratory Rate 18 bpm (12 - 24) 10/31/2017 12:00pm Blood Pressure 109/66 mm Hg 10/31/2017 12:00pm Height 5 ft 2 in 10/29/2017 3:20pm Weight 258 lb 10/31/2017 10:14am Body Mass Index 47.2 kg/m^2 10/31/2017 10:14am Results Laboratory Results Test Name Result Units Flags Reference Collection Date/Time Result Date/ Time Comments White Blood Count 5.82 x10e3/uL 4.8-10.8 10/31/2017 10:48am 10/31/2017 11:41am Red Blood Count 3.95 x10e6/uL 3.6-5.1 10/31/2017 10:48am 10/31/2017 11: 41am Hemoglobin 11.7 g/dL L 12.0-16.0 10/31/2017 10:48am 10/31/2017 11:41am Hematocrit 35.3 % 34.2-44.1 10/31/2017 10:48am 10/31/2017 11:41am Mean Corpuscular Volume 89.4 fL 81-99 10/31/2017 10:48am 10/31/2017 11: 41am Mean Corpuscular Hemoglobin 29.6 pg 28-32 10/31/2017 10:48am 2017 11:41am Mean Corpuscular Hemoglobin Concent 33.1 g/dL 31-35 10/31/2017 10:48am 10/31/2017 11:41am Red Cell Distribution Width 13.2 % 11.7-14.4 10/31/2017 10:48am 2017 11:41am Platelet Count 232 x10e3/uL 140-360 10/31/2017 10:48am 10/31/2017 11: 41am Neutrophils (%) (Auto) 64.4 % 38.7-80.0 10/31/2017 10:48am 10/31/2017 11:41am Lymphocytes (%) (Auto) 22.5 % 18.0-39.1 10/31/2017 10:48am 10/31/2017 11:41am Monocytes (%) (Auto) 11.3 % 4.4-11.3 10/31/2017 10:48am 10/31/2017 11: 41am Eosinophils (%) (Auto) 1.4 % 0.0-6.0 10/31/2017 10:48am 10/31/2017 11: 41am Basophils (%) (Auto) 0.2 % 0.0-1.0 10/31/2017 10:48am 10/31/2017 11: 41am IM GRANULOCYTES % 0.2 % 0.0-1.0 10/31/2017 10:48am 10/31/2017 11:41am Neutrophils # (Auto) 3.8 2.1-6.9 10/31/2017 10:48am 10/31/2017 11: 41am Lymphocytes # (Auto) 1.3 1.0-3.2 10/31/2017 10:48am 10/31/2017 11: 41am Monocytes # (Auto) 0.7 0.2-0.8 10/31/2017 10:48am 10/31/2017 11:41am Eosinophils # (Auto) 0.1 0.0-0.4 10/31/2017 10:48am 10/31/2017 11: 41am Basophils # (Auto) 0.0 0.0-0.1 10/31/2017 10:48am 10/31/2017 11:41am Absolute Immature Granulocyte (auto 0.01 x10e3/uL 0-0.1 10/31/2017 10: 48am 10/31/2017 11:41am Prothrombin Time 14.2 seconds 11.9-14.5 10/29/2017 9:43pm 10/29/2017 10 :02pm Prothromb Time International Ratio 1.05 10/29/2017 9:43pm 2017 10:02pm Oral Anticoagulant Therapy INR Values: 1. Low Intensity Therapy 1.5 - 2.0 2. Moderate Intensity Therapy 2.0 - 3.0 3. High Intensity Therapy(1) 2.5 - 3.5 4. High Intensity Therapy(2) 3.0 - 4.0 5. Panic Value INR > 5.0 Activated Partial Thromboplast Time 27.8 seconds 23.8-35.5 10/30/2017 5: 00am 10/30/2017 5:41am D-Dimer Quantitative (PE/DVT) 0.38 ug/mLFEU 0.00-0.45 10/29/2017 9:43pm 10/29/2017 10:04pm As with all in vitro diagnostic tests, the test results should be interpreted by the physician in conjunction with clinical findings and other test results. Test results are reported in NEW D-dimer units(ug/mLFEU). Urine Color SHIRA H YELLOW 10/29/2017 3:18pm 10/29/2017 4:30pm Urine Clarity SL CLOUDY CLEAR 10/29/2017 3:18pm 10/29/2017 4:30pm Urine Specific [place] 1.030 H 1.010-1.025 10/29/2017 3:18pm 2017 4:30pm Urine pH 5 5 - 7 10/29/2017 3:18pm 10/29/2017 4:30pm Urine Leukocyte Esterase 1+ H NEGATIVE 10/29/2017 3:18pm 10/29/2017 4: 30pm Urine Nitrite NEGATIVE NEGATIVE 10/29/2017 3:18pm 10/29/2017 4:30pm Urine Protein TRACE H NEGATIVE 10/29/2017 3:18pm 10/29/2017 4:30pm Urine Glucose (UA) NEGATIVE NEGATIVE 10/29/2017 3:18pm 10/29/2017 4: 30pm Urine Ketones 3+ H NEGATIVE 10/29/2017 3:18pm 10/29/2017 4:30pm Urine Urobilinogen 1 mg/dL 0.2 - 1 10/29/2017 3:18pm 10/29/2017 4:30pm Urine Bilirubin 1+ H NEGATIVE 10/29/2017 3:18pm 10/29/2017 4:30pm Urine Blood 3+ H NEGATIVE 10/29/2017 3:18pm 10/29/2017 4:30pm Urine WBC 0-5 /HPF 0-5 10/29/2017 3:18pm 10/29/2017 4:43pm Urine RBC >50 /HPF H 0-5 10/29/2017 3:18pm 10/29/2017 4:43pm Urine Bacteria MANY /HPF H NONE 10/29/2017 3:18pm 10/29/2017 4:43pm Urine Epithelial Cells MODERATE /LPF NONE 10/29/2017 3:18pm 10/29/2017 4:43pm Urine Transitional Epithelial Cells FEW H NONE 10/29/2017 3:18pm 10/29 4:43pm Urine Test NEGATIVE NEGATIVE 10/29/2017 3:18pm 10/29/2017 4 :31pm Sodium Level 140 mmol/L 136-145 10/31/2017 10:48am 10/31/2017 11:52am Potassium Level 3.6 mmol/L 3.5-5.1 10/31/2017 10:48am 10/31/2017 11: 52am Chloride Level 110 mmol/L H 98-107 10/31/2017 10:48am 10/31/2017 11: 52am Carbon Dioxide Level 21 mmol/L L 22-29 10/31/2017 10:48am 10/31/2017 11: 52am Anion Gap 12.6 mmol/L 8-16 10/31/2017 10:48am 10/31/2017 11:52am Blood Urea Nitrogen 5 mg/dL L 7-26 10/31/2017 10:48am 10/31/2017 11: 52am Creatinine 0.88 mg/dL 0.57-1.11 10/31/2017 10:48am 10/31/2017 11:52am BUN/Creatinine Ratio 6 6-25 10/31/2017 10:48am 10/31/2017 11:52am Estimat Glomerular Filtration Rate > 60 ML/MIN 60- 10/31/2017 10:48am 10/31/2017 11:52am Ranges were taken from the National Kidney Disease Education Program and the National Kid[employer] Foundation literature. Reference ranges: 60 or greater: Normal 16-59 (for 3 consecutive months): Chronic kidney disease 15 or less: Kidney failure Glucose Level 84 mg/dL 74-118 10/31/2017 10:48am 10/31/2017 11:52am Calcium Level 8.5 mg/dL 8.4-10.2 10/31/2017 10:48am 10/31/2017 11:52am Lactic Acid Level 19.2 MG/DL 4.5-19.8 10/29/2017 9:43pm 10/29/2017 10: 03pm Magnesium Level 1.9 MG/DL 1.3-2.1 10/31/2017 10:48am 10/31/2017 11: 52am Total Bilirubin 0.8 mg/dL 0.2-1.2 10/30/2017 5:00am 10/30/2017 5:47am Aspartate Amino Transf (AST/SGOT) 15 IU/L 5-34 10/30/2017 5:00am 2017 5:47am Alanine Aminotransferase (ALT/SGPT) 18 IU/L 0-55 10/30/2017 5:00am 11/2017 5:47am Total Protein 5.9 g/dL # L 6.5-8.1 10/30/2017 5:00am 10/30/2017 5:47am Albumin 3.2 g/dL # L 3.5-5.0 10/30/2017 5:00am 10/30/2017 5:47am Globulin 2.7 g/dL 2.3-3.5 10/30/2017 5:00am 10/30/2017 5:47am Albumin/Globulin Ratio 1.2 0.8-2.0 10/30/2017 5:00am 10/30/2017 5: 47am Alkaline Phosphatase 86 IU/L 40-150 10/30/2017 5:00am 10/30/2017 5: 47am B-Type Natriuretic Peptide 36.8 pg/mL 0-100 10/31/2017 10:48am 2017 12:29pm Creatine Kinase 67 IU/L 29-168 10/30/2017 3:20pm 10/30/2017 4:06pm Creatine Kinase MB 0.40 ng/mL 0.00-5.00 10/30/2017 3:20pm 10/30/2017 4: 06pm Troponin I < 0.001 ng/mL 0-0.300 10/30/2017 3:20pm 10/30/2017 4:06pm Thyroid Stimulating Hormone (TSH) 5.253 uIU/mL H 0.350-4.940 10/29/2017 9 :43pm 10/29/2017 10:29pm Microbiology Results Procedure Source Organism/Result Collection Date/Time Result Date/Time Result Status Blood Culture Blood NO GROWTH AFTER 24 HOURS 10/29/2017 9:43pm 10/30/2017 10:00pm Preliminary Procedures Procedure Status Date Provider(s) CT of abdomen and pelvis without contrast Active 10/29/17 JOSH THOMASON Encounters Encounter Location Arrival/Admit Date Discharge/Depart Date Attending Provider Discharged Inpatient [facility] 10/29/17 10:33pm 2:17pm MARIPOSA HASTINGS MD
--- NOTE | 2018-01-05 15:07 | Diagnostic Imaging Report ---
PROCEDURE: A single AP view of the chest. COMPARISON: None. INDICATIONS: SOB, CP A FIB YESTERDAY FINDINGS: Lines/tubes: None. Lungs: The lungs are well inflated and clear. There is no evidence of pneumonia or pulmonary edema. Pleura: There is no pleural effusion or pneumothorax. Heart and mediastinum: The heart and the mediastinum are unremarkable. Bones: No acute bony abnormality. IMPRESSION: No acute cardiopulmonary disease. Dictated by: Vinnie Ledezma M.D. on 01/05/2018 at 15:08 Electronically approved by: Vinnie eLdezma M.D. on 01/05/2018 at 15:08
[2018-01-05 15:08] LABS: BASOPHILS % 0.5 % (0.0-1.0); EOSINOPHILS # (AUTO) 0.1 (0.0-0.4); HEMATOCRIT 39.9 % (34.2-44.1); HEMOGLOBIN 13.7 g/dL (12.0-16.0); LYMPHOCYTES # (AUTO) 2.3 (1.0-3.2); LYMPHOCYTES % 36.8 % (18.0-39.1); MEAN CORPUSCULAR HEMOGLOBIN 30.2 pg (28-32); MEAN CORPUSCULAR HGB CONC 34.3 g/dL (31-35); MEAN CORPUSCULAR VOLUME 87.9 fL (81-99); MONOCYTES # (AUTO) 0.5 (0.2-0.8); MONOCYTES % 7.6 % (4.4-11.3); NEUTROPHILS # (AUTO) 3.3 (2.1-6.9); NEUTROPHILS % 53.9 % (38.7-80.0); PLATELET COUNT 307 x10e3/uL (140-360); RED BLOOD COUNT 4.54 x10e6/uL (3.6-5.1); RED CELL DISTRIBUTION WIDTH 12.7 % (11.7-14.4)
[2018-01-05] MEDS ORDERED: LORAZEPAM INJ 2 MG/ML VIAL IV ONE (15:15)
[2018-01-05 15:17] LABS: INR 1.08; PARTIAL THROMBOPLASTIN TIME 26.6 seconds (23.8-35.5); PROTHROMBIN TIME 13.2 seconds (11.9-14.5)
[2018-01-05 15:23] LABS: MAGNESIUM 2.2 MG/DL (1.3-2.1); PHOSPHORUS 1.5 MG/DL (2.3-4.7)
[2018-01-05 15:25] LABS: ALANINE AMINOTRANSFERASE 23 IU/L (0-55); ALBUMIN 4.2 g/dL (3.5-5.0); ALBUMIN/GLOBULIN RATIO 1.1 (0.8-2.0); ALKALINE PHOSPHATASE 121 IU/L (40-150); ANION GAP 12.7 mmol/L (8-16); BLOOD UREA NITROGEN 8 mg/dL (7-26); BUN/CREATININE RATIO 10 (6-25); CALCIUM 9.9 mg/dL (8.4-10.2); CARBON DIOXIDE 23 mmol/L (22-29); CHLORIDE 107 mmol/L (98-107); CREATINE KINASE 64 IU/L (29-168); CREATININE, SERUM 0.84 mg/dL (0.57-1.11); EST GLOMERULAR FILTRATION RATE > 60 ML/MIN (60-); GLUCOSE 123 mg/dL (74-118); POTASSIUM 3.7 mmol/L (3.5-5.1); SODIUM 139 mmol/L (136-145)
[2018-01-05 15:28] LABS: CHOL/HDL RATIO 3.9 (3.0-3.6)
[2018-01-05 15:45] LABS: THYROID STIMULATING HORMONE 1.425 uIU/mL (0.350-4.940)
[2018-01-05 19:17] VITALS: BP 127/62
[2018-01-06] MEDS ORDERED: PHOSPHORUS 250 MG TAB PO ONE (09:00)
[2018-01-06] MEDS ORDERED: NITROGLYCERIN 0.1MG/HR PATCH TOP SCH (09:00)
== END 2018-01-05 20:21 | disposition home or self-care (01) ==
LOC: ER 14:19
DX: R00.2 Palpitations (principal); R07.89 Other chest pain; F41.9 Anxiety disorder, unspecified; I48.91 Unspecified atrial fibrillation
CPT/HCPCS: 36415; 71045; 80053; 80061; 82550; 82553; 83735; 83880; 84100; 84443; 84484; 84702; 85025; 85379; 85610; 85730; 93005; 99284

== ENCOUNTER → 2019-08-10 | Day surgery (SDC) | payer OTHER ==
[~2019-08-10] VITALS: Ht 157.5 cm; Wt 79.8 kg
[~2019-08-10] MED LIST changes: +ACETAMINOPHEN 1000 MG/100 ML 100 ML IV ONE; +BUPIVACAINE 0.25%/EPI 30ML SDV INJ ONE; +DEXAMETHASONE SOD PHOS INJ 4 MG/ML VIAL ONE; +FENTANYL CITRATE/PF 100MCG/2 ML INJ IV ONE; +FENTANYL CITRATE/PF 100MCG/2 ML INJ ONE; +LIDOCAINE HCL (LTA) 4 ML SOLN ONE; +LIDOCAINE HCL 2% JELLY 5 ML TUBE ONE; +LIDOCAINE HCL 2% LOCAL INJ 5 ML SDV VIAL INJ ONE; +MEPERIDINE HCL INJ 25 MG/ML VIAL ONE; +MORPHINE SULFATE 2 MG/ML SYR 1ML IV NR; +MORPHINE SULFATE 2 MG/ML SYR 1ML ONE; +MORPHINE SULFATE 5 MG/ML VIAL IV ONE; +MORPHINE SULFATE INJ 4 MG/ML INJ 1ML ONE; +ONDANSETRON HCL INJ 2MG/ML 2ML 2 MG/ML VIAL ONE; +PROPOFOL IV EMULSION 10 MG/ML 20 ML VIAL ONE; +RHO IMMUNE GLOBULIN ONE; +ROCURONIUM BROMIDE 10 MG/ML 5ML VIAL ONE; +SCOPOLAMINE 1.5 MG PATCH ONE; +SEVOFLURANE INHAL SOLN 250 ML PEN BTL ONE; +SUGAMMADEX SODIUM 200 MG/2 ML VIAL IV ONE
[2019-08-10 07:14] LABS: BILIRUBIN,URINE NEGATIVE (NEGATIVE); CLARITY,URINE SL CLOUDY (CLEAR); COLOR,URINE YELLOW (YELLOW); KETONES,URINE 1+ (NEGATIVE); LEUKOCYTE ESTERASE ,URINE NEGATIVE (NEGATIVE); NITRITE,URINE NEGATIVE (NEGATIVE); PROTEIN,URINE DIPSTICK NEGATIVE (NEGATIVE); URINE UROBILINOGEN 0.2 mg/dL (0.2 - 1)
[2019-08-10 07:16] LABS: BASOPHILS % 0.6 % (0.0-1.0); EOSINOPHILS # (AUTO) 0.1 (0.0-0.4); HEMATOCRIT 37.9 % (34.2-44.1); HEMOGLOBIN 12.8 g/dL (12.0-16.0); LYMPHOCYTES # (AUTO) 1.7 (1.0-3.2); LYMPHOCYTES % 31.8 % (18.0-39.1); MEAN CORPUSCULAR HEMOGLOBIN 29.9 pg (28-32); MEAN CORPUSCULAR HGB CONC 33.8 g/dL (31-35); MEAN CORPUSCULAR VOLUME 88.6 fL (81-99); MONOCYTES # (AUTO) 0.5 (0.2-0.8); MONOCYTES % 9.9 % (4.4-11.3); NEUTROPHILS % 56.5 % (38.7-80.0); PLATELET COUNT 245 x10e3/uL (140-360); RED BLOOD COUNT 4.28 x10e6/uL (3.6-5.1); RED CELL DISTRIBUTION WIDTH 12.3 % (11.7-14.4)
[2019-08-10 07:29] LABS: BACTERIA,URINE MANY /HPF; EPITHELIAL CELLS,URINE MANY /LPF; RBC,URINE 21-50 /HPF (0-5); WBC,URINE (MAN) 0-5 /HPF (0-5)
[2019-08-10 07:30] LABS: ANION GAP 11.4 mmol/L (8-16); BLOOD UREA NITROGEN 11 mg/dL (7-26); BUN/CREATININE RATIO 14 (6-25); CALCIUM 9.9 mg/dL (8.4-10.2); CARBON DIOXIDE 25 mmol/L (22-29); CHLORIDE 106 mmol/L (98-107); CREATININE, SERUM 0.76 mg/dL (0.57-1.11); EST GLOMERULAR FILTRATION RATE > 60 ML/MIN (60-); GLUCOSE 97 mg/dL (74-118); POTASSIUM 3.4 mmol/L (3.5-5.1); SODIUM 139 mmol/L (136-145)
--- NOTE | 2019-08-10 09:06 | Diagnostic Imaging Report ---
Exam: OB Ultrasound 1st Trimester History: Pelvic pain, bleeding, Comparison: OB ultrasound of 05/05/2015 TECHNIQUE: Grayscale transverse and sagittal transabdominal and transvaginal images were obtained of the pelvis. Transvaginal imaging was medically necessary to better evaluate the endometrium. CLINICAL HISTORY: 29 year old ; last menstrual period: 06/09/2019. Findings: Uterus: Orientation: Normal Size: 5.7 x 3.7 x 4.6 cm Mass: None Cervix: Normal Endometrial stripe: 1.5 cm. Homogeneous hyperechoic echotexture, without focal thickening. The left ovary measures 2.5 x 1.7 x 2.0 cm and appears unremarkable. There is a right adnexal mass measuring 5.5 x 4.8 x 4.1 cm which contains the right ovary and the gestational sac. Gestational Sac: Location: The gestational sac is extrauterine, localizing to the right adnexa. The gestational sac measures 1.29cm (6 weeks, 0 days). A tiny hyperechoic yolk sac is seen. pole is seen with crown-rump length of 0.3 cm (5 weeks 6 days). No detectable heart tone. Impression: Extrauterine ovarian versus tubal ectopic without heart tones. Estimated dates as above. The above findings were discussed with Dr. Aleman on 08/10/2019 8:51 AM, who responded indicating that the communication was understood. Signed by: Trever Romeo MD on 08/10/2019 9:02 AM
[2019-08-10 11:07] LABS: ALANINE AMINOTRANSFERASE 18 IU/L (0-55); ALBUMIN 3.9 g/dL (3.5-5.0); ALBUMIN/GLOBULIN RATIO 1.4 (0.8-2.0); ALKALINE PHOSPHATASE 89 IU/L (40-150); ANION GAP 11.7 mmol/L (8-16); BLOOD UREA NITROGEN 10 mg/dL (7-26); BUN/CREATININE RATIO 14 (6-25); CALCIUM 9.3 mg/dL (8.4-10.2); CARBON DIOXIDE 23 mmol/L (22-29); CHLORIDE 109 mmol/L (98-107); CREATININE, SERUM 0.71 mg/dL (0.57-1.11); EST GLOMERULAR FILTRATION RATE > 60 ML/MIN (60-); GLUCOSE 89 mg/dL (74-118); POTASSIUM 3.7 mmol/L (3.5-5.1); SODIUM 140 mmol/L (136-145)
[2019-08-10 14:05] VITALS: BP 124/74
--- NOTE | 2019-08-15 14:19 | Operative Report ---
DATE OF PROCEDURE: 08/10/2019 SURGEON: Jerica Musa MD CRACKING UNIT OPERATOR: None. PREOPERATIVE DIAGNOSES: 1. Suspected tubal ectopic . 2. Acute pelvic pain. POSTOPERATIVE DIAGNOSES: Hemoperitoneum and ruptured right ectopic tubal . PROCEDURES PERFORMED: Diagnostic laparoscopy with evacuation of hemoperitoneum and right salpingectomy for ectopic . ANESTHESIA: General endotracheal. ESTIMATED BLOOD LOSS: Minimal blood loss from the operation, however, there was approximately 300 mL of clotted and bright red blood within the abdomen. SPECIMEN: Right fallopian tube with ectopic . COMPLICATIONS: None. FINDINGS: On bimanual exam, the patient had a large mass on her right adnexa and cul-de-sac. Laparoscopically, the patient had approximately 300 mL of bright red blood in the cul-de-sac. There is noted to be what appeared to be a gestation within the right adnexa. The right adnexa had partially ruptured and was bleeding. The left fallopian tube was absent. INDICATIONS FOR PROCEDURE: The patient is a 29-year-old 8, para 0-0-7-0 at approximately 8 weeks gestation, who presented to the emergency room with severe acute abdominal pain and was noted on ultrasound to have what appeared to be a right tubal ectopic . Due to her severe pain with guarding and rebound on examination, decision was made to proceed with surgical management. Informed consent was obtained. DESCRIPTION OF PROCEDURE: The patient was taken to the operating room and general anesthesia was administered. She was positioned in dorsal lithotomy position in [facility] and prepped and draped in typical sterile fashion. A weighted speculum was then placed in the vagina and the anterior lip of the cervix was grasped with a tenaculum. A uterine manipulator was then placed through the cervix and the weighted speculum was removed. Gloves were changed and attention was then turned to the abdomen. The infraumbilical port site was identified and injected with a solution of 0.25% Marcaine with epinephrine and a small vertical infraumbilical incision was made with a scalpel. A 5 mm trocar was placed at the umbilicus under direct visualization with laparoscopic. Survey of the abdomen and pelvis were done with the findings noted above. Two additional ports were then placed in the patient's left lower quadrant after injection with Marcaine. A 5 mm port was placed approximately 4 cm anterior and superior to the ASIS and an 11 mm port was placed approximately 5 fingerbreadths above this. Both were inserted atraumatically under direct visualization with the laparoscope. The suction production shift supervisor was then used to remove the hemoperitoneum, approximately 2 L of irrigation was used and the majority of all blood products and clots were removed from the abdomen. Once the majority of the blood was cleaned from abdomen, ectopic was more easily identified in the right fallopian tube. The right fallopian tube was grasped with a blunt grasper and the LigaSure device was then used to serially coagulate and cut along the mesosalpinx inferior to the fallopian tube and then to transect the fallopian tube proximal to the ectopic . An EndoCatch bag was then placed into the large port and was used to remove the right fallopian tube with ectopic within, this was then sent to the pathologist. The surgical sites were then examined and noted to be hemostatic. The abdomen was further irrigated. The remainder of the abdomen was examined and all was noted to be normal in appearance. The large port was then removed and a Cruz Levine device was used to close this incision with 0 Vicryl suture in a mass closure technique. The abdomen was then desufflated and the remainder of the ports were removed. All laparoscopic incisions were then closed with 3-0 Vicryl in a subcuticular fashion and then covered in Dermabond at the end of the procedure. Uterine manipulator was removed from the cervix and the patient was taken to the recovery room in stable condition. The patient tolerated the procedure well. All sponge, lap, needle, and instrument counts were correct x2. She was discharged home in stable condition, having tolerated the procedure well. A dose of intramuscular RhoGAM was given to the patient prior to being removed from the operating room. MD DANIELLE Posey/MODElizabeth /[id number]
== END | disposition home or self-care (01) ==
LOC: ER 06:35 → OR 10:06
PROVIDERS: ATTEND Obstetrics & Gynecology Obstetrics
DX: O00.90 Unspecified ectopic pregnancy without intrauterine pregnancy (principal); K66.1 Hemoperitoneum; N96 Recurrent pregnancy loss; I48.91 Unspecified atrial fibrillation; Z88.6 Allergy status to analgesic agent; Z88.7 Allergy status to serum and vaccine; Z79.82 Long term (current) use of aspirin; Z79.84 Long term (current) use of oral hypoglycemic drugs; Z98.84 Bariatric surgery status
CPT/HCPCS: 36415; 59151; 76817; 80048; 80053; 81001; 84702; 85025; 86850; 86900; 88305; 99284; J0131; J1100; J1566; J2001 ×2; J2175; J2270 ×2; J2405; J2704; J3010

== ENCOUNTER 2019-08-14 19:03 | Emergency (ER) | payer OTHER ==
[~2019-08-14] VITALS: Ht 157.5 cm; Wt 79.8 kg
[~2019-08-14 19:03] MED LIST changes: -ACETAMINOPHEN 1000 MG/100 ML 100 ML IV ONE; -BUPIVACAINE 0.25%/EPI 30ML SDV INJ ONE; -DEXAMETHASONE SOD PHOS INJ 4 MG/ML VIAL ONE; -FENTANYL CITRATE/PF 100MCG/2 ML INJ IV ONE; -FENTANYL CITRATE/PF 100MCG/2 ML INJ ONE; -LIDOCAINE HCL (LTA) 4 ML SOLN ONE; -LIDOCAINE HCL 2% JELLY 5 ML TUBE ONE; -LIDOCAINE HCL 2% LOCAL INJ 5 ML SDV VIAL INJ ONE; -MEPERIDINE HCL INJ 25 MG/ML VIAL ONE; -MORPHINE SULFATE 2 MG/ML SYR 1ML IV NR; -MORPHINE SULFATE 2 MG/ML SYR 1ML ONE; -MORPHINE SULFATE 5 MG/ML VIAL IV ONE; -MORPHINE SULFATE INJ 4 MG/ML INJ 1ML ONE; -ONDANSETRON HCL INJ 2MG/ML 2ML 2 MG/ML VIAL ONE; -PROPOFOL IV EMULSION 10 MG/ML 20 ML VIAL ONE; -RHO IMMUNE GLOBULIN ONE; -ROCURONIUM BROMIDE 10 MG/ML 5ML VIAL ONE; -SCOPOLAMINE 1.5 MG PATCH ONE; -SEVOFLURANE INHAL SOLN 250 ML PEN BTL ONE; -SUGAMMADEX SODIUM 200 MG/2 ML VIAL IV ONE
[2019-08-14 19:25] VITALS: BP 149/95
== END 2019-08-14 19:40 | disposition home or self-care (01) ==
LOC: ER 19:03
DX: L03.311 Cellulitis of abdominal wall (principal); Z90.721 Acquired absence of ovaries, unilateral; I51.9 Heart disease, unspecified; I48.91 Unspecified atrial fibrillation
CPT/HCPCS: 99282

== ENCOUNTER 2020-05-11 17:13 | Emergency (ER) | payer OTHER ==
[~2020-05-11] VITALS: Ht 157.5 cm; Wt 79.8 kg
--- OUTSIDE RECORDS SUMMARY | 2020-05-11 17:55 | XMS REPORT | Continuity of Care Document ---
Author Author [facility] t Organization [facility] Address [address] [place] [address] Phone Unavailable Care Team Providers Care Dolphin Trainer Name Role Phone NO, PCP PCP Unavailable Elizabeth BUSTOS Attphys Unavailable MICHAELAYissel Attphys Unavailable MARIPOSA HASTINGS Attphys Unavailable KILLMARIPOSA MCFARLANE Admphys Unavailable Payers Payer Name Policy Type Policy Number Effective Date Expiration Date Rex Aden [facility] [id number] 2011 00:00: 00 [facility] Problems Condition Name Condition Details Condition Category Status Onset Date Resolution Date Last Treatment Date Treating Clinician Comments Source Abnormal stress test Abnormal stress test Disease Active 00:00:00 [facility] Ectopic without intrauterine Ectopic pregnan cy Problem Active 2015-05-05 00:00:00 [facility] Calculus of ureter Ureterolithiasis Problem Active [facility] Allergies, Adverse Reactions, Alerts Allergy Name Allergy Type Status Severity Reaction(s) Onset Date Inacti ve Date Treating Clinician Comments Source Flu Vac Ts 2015- (4yr,Up)-Pf Propensity to adverse reactions Active Hives 2018-01-20 00:00:00 [facility] Cinnamon Allergy to Substance Active Severe ANAPHYLAXIS 2018-01-05 00: 00:00 [facility] Tramadol Propensity to adverse reactions Active VOMITING 2018-01-05 00:00:00 [facility] influenza virus vaccine ts (4 yr up) Allergy to Substance Active Mild HIVES 2018-01-05 00:00:00 [facility] Tramadol Propensity to adverse reactions Active Naus ea And Vomiting 2012-10-21 00:00:00 c/o vomiting with Tramadol [facility] Cinnamon Propensity to adverse reactions Active Swelling 2011-04-24 00:00:00 [facility] Social History Social Habit Start Date Stop Date Quantity Comments Source Sex Assigned At [facility] Smoking Status Start Date Stop Date Source Never smoker [facility] Medications Ordered Medication Name Filled Medication Name Start Date Stop Da te Current Medication? Ordering Clinician Indication Dosage Frequency Signature (SIG) Comments Components Source MEDROXYPROGESTERONE ACETATE (DEPO-PROVERA IM) 2018-01-20 06:23:4 8 Yes Inject intramuscularly. [facility] multivitamin per tablet 2018-01-20 06:15:30 Yes 1{tbl} QD Take 1 tablet by mouth daily. [facility] ergocalciferol (VITAMIN D2) 50,000 unit capsule 2018-01-20 06:15 :30 Yes 10189F Q7D Take 50,000 Units by mouth once a week. [facility] carvedilol (COREG) 3.125 MG tablet 2018-01-20 06:15:29 Yes 3.125mg Take 3.125 mg by mouth 2 (two) times daily with breakfast and dinner. [facility] apixaban (ELIQUIS) 5 mg Tab tablet 2018-01-20 00:00:00 Yes 5mg Q.5D Take 1 tablet (5 mg total) by mouth 2 (two) times daily. [facility] Amiodarone Hcl 200 Mg Tablet Amiodarone Hcl 200 Mg Tablet 4 00:00:00 Yes Willis Beltran Np 200 Twice A Day I [facility] Apixaban 5 Mg Tablet Apixaban 5 Mg Tablet 2017-10-31 00:00:00 Yes Willis Beltran Np 5 Twice A Day [facility] Cefuroxime Axetil (Cefuroxime) 250 Mg Tablet Cefuroxim e Axetil (Cefuroxime) 250 Mg Tablet 2017-10-31 00:00:00 Yes Willis Devin Criminal Attorney 500 Every 12 Hours [facility] Famotidine 20 Mg Tab Famotidine 20 Mg Tab 2017-10-31 00:00:00 Yes Willis Beltran Criminal Attorney 20 Twice Daily Before Meals [facility] Metoprolol Tartrate (Lopressor) 25 Mg Tab Metoprolol T artrate (Lopressor) 25 Mg Tab 2017-10-31 00:00:00 Yes Willis Belrtan Criminal Attorney 25 Twice A Day [facility] Aspirin (Aspir 81) 81 Mg Tablet. Aspirin (Aspir 81) 81 Mg Tablet. Yes 81 Daily [facility] Heparin Sodium,Porcine (Heparin Sodium) 5,000 Unit/1 M l Vial Heparin Sodium,Porcine (Heparin Sodium) 5,000 Unit/1 Ml Vial Yes 5000 Twice A Day [facility] Hydrocodone Bit/Acetaminophen (Hydrocodon-Acetaminophe n 5-300) 1 Each Tablet Hydrocodone Bit/Acetaminophen (Hydrocodon-Acetaminophen 5-300) 1 Each Tablet Yes 1 Every 4 Hours as needed for Pain [facility] Metformin Hcl 1,000 Mg Tablet Metformin Hcl 1,000 Mg Tablet Yes 2000 Daily [facility] Procedures Procedure Date / Time Performed Performing Clinician [facility] e Diagnostic laparoscopy 2019-08-10 00:00:00 MELIDA UMANZOR [facility] Obstetrical transvaginal ultrasound in first trimester 08-10 00:00:00 KADY BUSTOS [facility] Encounters Start Date/Time End Date/Time Encounter Type Admission Type Attendi [facility] Care Department Encounter ID Source 2019-08-14 19:03:00 2019-08-14 19:40:00 Departed Emergency Room [facility] [id number] [facility] 2019-08-10 10:06:00 2019-08-10 10:06:00 Registered Surgical Day Car e 1 KADY BUSTOS [facility] [id number] [facility] 2018-01-05 14:19:00 2018-01-05 14:19:00 Registered Emergency Room PETE GALLEGOS [facility] [id number] [facility] 2017-10-29 22:33:00 2017-10-31 14:17:00 Discharged Inpatient ER MARIPOSA HASTINGS [facility] [id number] [facility] Results Test Description Test Time Test Comments Results Result Comments Source Sodium Level 2019-08-10 11:08:00 Test Item Sodium Level (test code = 2951-2) 140 136-145 [facility]Pot[facility] Lexhu1642-46-94 11:08:00* Test Item Value Reference Range Interpretation Comments Potassium Level (test code = 2823-3) 3.7 3.5-5.1 [facility] CenterChloride Vojgv4191-79-88 11:08:00* Test Item Value Reference Range Interpretation Comments Chloride Level (test code = 2075-0) 109 98-107 H [facility] CenterCarbon Dioxide Nutda0400-96-61 11:08:00* Test Item Value Reference Range Interpretation Comments Carbon Dioxide Level (test code = 2028-9) 23 22-29 [facility] CenterAnion Mpp6027-97-86 11:08:00* Test Item Value Reference Range Interpretation Comments Anion Gap (test code = 94713-4) 11.7 8-16 [facility] CenterBlood Urea Immoltmj7603-48-45 11:08:00* Test Item Value Reference Range Interpretation Comments Blood Urea Nitrogen (test code = 3094-0) 10 7-26 [facility] CenterCreatinine2019-11-14 11:08:00* Test Item Value Reference Range Interpretation Comments Creatinine (test code = 2160-0) 0.71 0.57-1.11 [facility] CenterBUN/Creatinine Znbzf2255-98-70 11:08:00* Test Item Value Reference Range Interpretation Comments BUN/Creatinine Ratio (test code = 3097-3) 14 6-25 [facility] CenterEstimat Glomerular Filtration Rate 2019-08-10 11:08:00* Test Item Value Reference Range Interpretation Comments Estimat Glomerular Filtration Rate (test code = 674670591) > 60 >60 Ranges were taken from the National Kidney Disease Education Program and the [facility] Kidney Foundation literature.Reference ranges:60 or greater: Taxqiz21-62 ( for 3 consecutive months): Chronic kidney disease 15 or less: Kidney failureSaint Mark's Medical CenterGlucose Nkuse3008-70-13 11:08:00* Test Item Value Reference Range Interpretation Comments Glucose Level (test code = STL1012) 89 74-118 [facility] CenterCalcium Txgef7078-26-82 11:08:00* Test Item Value Reference Range Interpretation Comments Calcium Level (test code = 61712-4) 9.3 8.4-10.2 [facility] CenterTotal Zrgifopyq2621-97-00 11:08:00* Test Item Value Reference Range Interpretation Comments Total Bilirubin (test code = 1975-2) 0.6 0.2-1.2 [facility] CenterAspartate Amino Transf (AST/SGOT) 2019-08-10 11:08:00* Test Item Value Reference Range Interpretation Comments Aspartate Amino Transf (AST/SGOT) (test code = Aspartate Amino Transf (AST/SGOT)) 22 5-34 [facility] CenterAlanine Aminotransferase (ALT/SGPT) 2019-08-10 11:08:00* Test Item Value Reference Range Interpretation Comments Alanine Aminotransferase (ALT/SGPT) (test code = 1742-6) 18 0-55 [facility] CenterTotal Gdkwvcr2774-65-70 11:08:00* Test Item Value Reference Range Interpretation Comments Total Protein (test code = 2885-2) 6.7 6.5-8.1 [facility] CenterAlbumin2019-11-14 11:08:00* Test Item Value Reference Range Interpretation Comments Albumin (test code = 1751-7) 3.9 3.5-5.0 [facility] CenterGlobulin2019-11-14 11:08:00* Test Item Value Reference Range Interpretation Comments Globulin (test code = 02657-7) 2.8 2.3-3.5 [facility] CenterAlbumin/Globulin Ozugf2816-22-79 11:08:00 * Test Item Value Reference Range Interpretation Comments Albumin/Globulin Ratio (test code = 1759-0) 1.4 0.8-2.0 [facility] CenterAlkaline Hjvxgmkslyw8041-59-85 11:08:00* Test Item Value Reference Range Interpretation Comments Alkaline Phosphatase (test code = 6768-6) 89 40-150 [facility] CenterUS OB TRANSVAG 1ST TRI GMJMED3979-45-54 08:51:00 [facility] [address] [address] Patient Name: CAROLYN COX I MR #: [id number] : 1990 Age/Sex: 29/F Req #: [id number] Adm Physician: Ordered by: KADY BUSTOS MD Report #: [id number] Location: ER Room/Bed: Procedure: 111 4-0001 US/US OB TRANSVAG TRI SINGLE Exam Date: 08/10/19 Exam Time: 0735 REPORT STAT US: Signed Exam: OB Ultrasound 1st Trimester History: Pelvic pain, blee ding, Comparison: OB ultrasound of 05/05/2015 TECHNIQUE: Rubin scale transverse and sagittal transabdominal and transvaginal images were obta ined of the pelvis. Transvaginal imaging was medically necessary to better ev aluate the endometrium. CLINICAL HISTORY: 29 year old ; last menstrua l period: 06/09/2019. Findings: Uterus: Orientation: Normal Size: 5.7 x 3.7 x 4.6 cm Mass: None Cervix: Normal Endometrial stripe: 1.5 cm . Homogeneous hyperechoic echotexture, without focal thickening. The left ovary measures 2.5 x 1.7 x 2.0 cm and appears unremarkable. There is a right adnexal mass measuring 5.5 x 4.8 x 4.1 cm which contains the right ovary and t he gestational sac. Gestational Sac: Location: The gestational sac is ext rauterine, localizing to the right adnexa. The gestational sac measures 1.29cm (6 weeks, 0 days). A tiny hyperechoic yolk sac is seen. pole is seen wi th crown-rump length of 0.3 cm (5 weeks 6 days). No detectable hear t tone. Impression: Extrauterine ovarian versus tubal ectopic w ithout heart tones. Estimated dates as above. The above findings we re discussed with Dr. Aleman on 08/10/2019 8:51 AM, who responded indicating that the communication was understood. Signed by: Maria Oliveira MD on 019 9:02 AM Dictated By: MARIA OLIVEIRA MD 1 Transcribed By: IVORY on 08/10/19901 COPY TO: KADY BUSTOS MD Human Chorionic Gonadotropin, Lratd3434-10-45 07:43:00* Test Item Value Reference Range Interpretation Comments Human Chorionic Gonadotropin, Quant (test code = 84362-9) 2661.32 0-10 H [facility] CenterUrine [id number] 07:29:00* Test Item Value Reference Range Interpretation Comments Urine WBC (test code = 5821-4) 0-5 0-5 [facility] CenterUrine VHI6341-83-98 07:29:00* Test Item Value Reference Range Interpretation Comments Urine RBC (test code = 31523-8) 21-50 0-5 H [facility] CenterUrine Viqbhhua1200-93-80 07:29:00* Test Item Value Reference Range Interpretation Comments Urine Bacteria (test code = 01981-3) MANY NONE H [facility] CenterUrine Epithelial Ygzss0667-94-43 07:29:00 * Test Item Value Reference Range Interpretation Comments Urine Epithelial Cells (test code = 35919-6) MANY NONE [facility] CenterU[facility] Ncrdy2814-58-24 07:28:00* Test Item Value Reference Range Interpretation Comments Urine Color (test code = 5778-6) YELLOW YELLOW [facility] CenterUrine Pcndgdq0101-88-28 07:28:00* Test Item Value Reference Range Interpretation Comments Urine Clarity (test code = 78217-8) SL CLOUDY CLEAR [facility] CenterUrine Specific Syoocpz3330-73-37 07:28:00 * Test Item Value Reference Range Interpretation Comments Urine Specific [place] (test code = 5811-5) 1.020 1.010-1.02 5 [facility] CenterUrine gX2493-62-55 07:28:00* Test Item Value Reference Range Interpretation Comments Urine pH (test code = 13688-4) 6.5 5-7 [facility] CenterU[facility] Leukocyte Tzwglfog4389-98-41 07:28:00* Test Item Value Reference Range Interpretation Comments Urine Leukocyte Esterase (test code = 64240-2) NEGATIVE NEGATIV E [facility] Tsqtsxe3241-91-39 07:28:00* Test Item Value Reference Range Interpretation Comments Urine Nitrite (test code = 92698-2) NEGATIVE NEGATIVE [facility] Poqfoxi9549-38-25 07:28:00* Test Item Value Reference Range Interpretation Comments Urine Protein (test code = 25417-2) NEGATIVE NEGATIVE [facility] CenterUrine Glucose (UA)2019-08-10 07:28:00* Test Item Value Reference Range Interpretation Comments Urine Glucose (UA) (test code = 26134-5) NEGATIVE NEGATIVE [facility] Yzctjdw1479-22-77 07:28:00* Test Item Value Reference Range Interpretation Comments Urine Ketones (test code = 80665-0) 1+ NEGATIVE H [facility] Ihwjdzfjgqdx9808-45-16 07:28:00* Test Item Value Reference Range Interpretation Comments Urine Urobilinogen (test code = 93534-3) 0.2 0.2-1 [facility] CenterUrine Dwfimfuwk8675-48-99 07:28:00* Test Item Value Reference Range Interpretation Comments Urine Bilirubin (test code = 1977-8) NEGATIVE NEGATIVE [facility] Hniom6956-69-71 07:28:00* Test Item Value Reference Range Interpretation Comments Urine Blood (test code = 93639-6) 3+ NEGATIVE [facility] CenterWhite Blood Ezbac4359-61-17 07:17:00* Test Item Value Reference Range Interpretation Comments White Blood Count (test code = 6690-2) 5.25 4.8-10.8 [facility] CenterRed Blood Bcura7421-03-23 07:17:00* Test Item Value Reference Range Interpretation Comments Red Blood Count (test code = 789-8) 4.28 3.6-5.1 [facility] CenterHemoglobin2019-11-14 07:17:00* Test Item Value Reference Range Interpretation Comments Hemoglobin (test code = 57049-8) 12.8 12.0-16.0 [facility] CenterHematocrit2019-11-14 07:17:00* Test Item Value Reference Range Interpretation Comments Hematocrit (test code = 4544-3) 37.9 34.2-44.1 [facility] CenterMean Corpuscular Hsxqpp0409-90-40 07:17:00* Test Item Value Reference Range Interpretation Comments Mean Corpuscular Volume (test code = 787-2) 88.6 81-99 [facility] CenterMean Corpuscular Zfdzwtenzx9991-47-98 07:17:00* Test Item Value Reference Range Interpretation Comments Mean Corpuscular Hemoglobin (test code = 785-6) 29.9 28-32 [facility] CenterMean Corpuscular Hemoglobin Concent 2019-08-10 07:17:00* Test Item Value Reference Range Interpretation Comments Mean Corpuscular Hemoglobin Concent (test code = 786-4) 33.8 31-35 [facility] CenterRed Cell Distribution Dmdgd0414-16-43 07:17:00* Test Item Value Reference Range Interpretation Comments Red Cell Distribution Width (test code = 89755-1) 12.3 11.7 -14.4 [facility] CenterPlatelet Tedfr3873-32-49 07:17:00* Test Item Value Reference Range Interpretation Comments Platelet Count (test code = 777-3) 245 140-360 [facility] CenterNeutrophils (%) (Auto)2019-08-10 07:17:00 * Test Item Value Reference Range Interpretation Comments Neutrophils (%) (Auto) (test code = 65498-2) 56.5 38.7-80.0 [facility] CenterLymphocytes (%) (Auto)2019-08-10 07:17:00 * Test Item Value Reference Range Interpretation Comments Lymphocytes (%) (Auto) (test code = 736-9) 31.8 18.0-39.1 [facility] CenterMonocytes (%) (Auto)2019-08-10 07:17:00* Test Item Value Reference Range Interpretation Comments Monocytes (%) (Auto) (test code = 5905-5) 9.9 4.4-11.3 [facility] CenterEosinophils (%) (Auto)2019-08-10 07:17:00 * Test Item Value Reference Range Interpretation Comments Eosinophils (%) (Auto) (test code = 713-8) 1.0 0.0-6.0 [facility] CenterBasophils (%) (Auto)2019-08-10 07:17:00* Test Item Value Reference Range Interpretation Comments Basophils (%) (Auto) (test code = 706-2) 0.6 0.0-1.0 [facility] CenterIM GRANULOCYTES %2019-08-10 07:17:00* Test Item Value Reference Range Interpretation Comments IM GRANULOCYTES % (test code = IM GRANULOCYTES %) 0.2 0.0- 1.0 [facility] CenterNeutrophils # (Auto)2019-08-10 07:17:00* Test Item Value Reference Range Interpretation Comments Neutrophils # (Auto) (test code = 751-8) 3.0 2.1-6.9 [facility] CenterLymphocytes # (Auto)2019-08-10 07:17:00* Test Item Value Reference Range Interpretation Comments Lymphocytes # (Auto) (test code = 09977-5) 1.7 1.0-3.2 [facility] CenterMonocytes # (Auto)2019-08-10 07:17:00* Test Item Value Reference Range Interpretation Comments Monocytes # (Auto) (test code = 742-7) 0.5 0.2-0.8 [facility] CenterEosinophils # (Auto)2019-08-10 07:17:00* Test Item Value Reference Range Interpretation Comments Eosinophils # (Auto) (test code = 711-2) 0.1 0.0-0.4 [facility] CenterBasophils # (Auto)2019-08-10 07:17:00* Test Item Value Reference Range Interpretation Comments Basophils # (Auto) (test code = 704-7) 0.0 0.0-0.1 [facility] CenterAbsolute Immature Granulocyte (auto 2019-08-10 07:17:00* Test Item Value Reference Range Interpretation Comments Absolute Immature Granulocyte (auto (veronica t code = Absolute Immature Granulocyte (auto) 0.01 0-0.1 [facility] CenterTroponin [id number] 17:37:00* Test Item Value Reference Range Interpretation Comments Troponin I (test code = LHN1317) -0.001 0-0.300 [facility] CenterThyroid Stimulating Hormone (TSH) 2018-01-05 15:47:00* Test Item Value Reference Range Interpretation Comments Thyroid Stimulating Hormone (TSH) (test code = 01764-3) 1.425 0.350-4.940 [facility] CenterCreatine Kinase FE1777-79-30 15:32:00* Test Item Value Reference Range Interpretation Comments Creatine Kinase MB (test code = 04277-4) 0.20 0-5.0 [facility] CenterB-Type Natriuretic Vegxnni6324-96-09 15:29:00* Test Item Value Reference Range Interpretation Comments B-Type Natriuretic Peptide (test code = 42394-0) -10.0 0-100 [facility] CenterTriglycerides Wnlep7292-70-79 15:28:00* Test Item Value Reference Range Interpretation Comments Triglycerides Level (test code = 2571-8) 118 0-149 [facility] CenterCholesterol Zyvbz3636-88-36 15:28:00* Test Item Value Reference Range Interpretation Comments Cholesterol Level (test code = 2093-3) 185 0-199 Less than 200 mg/dL Low Mqim431 - 239 mg/dL Borderline Owqr861 m g/dl and greater High Risk [facility] CenterLDL Odfgcaatdfp4335-68-91 15:28:00* Test Item Value Reference Range Interpretation Comments LDL Cholesterol (test code = 2089-1) 113 60-130 [facility] CenterHDL Iszyuyfrmxt6844-53-48 15:28:00* Test Item Value Reference Range Interpretation Comments HDL Cholesterol (test code = 2085-9) 48 40-60 [facility] CenterCholesterol/HDL Rbjqd2924-20-85 15:28:00 * Test Item Value Reference Range Interpretation Comments Cholesterol/HDL Ratio (test code = 9830-1) 3.9 3.0-3.6 [facility] Qurmj9073-44-22 15:26:00* Test Item Value Reference Range Interpretation Comments Sodium Level (test code = 2951-2) 139 136-145 [facility] CenterPotassium Cnwiv5531-31-70 15:26:00* Test Item Value Reference Range Interpretation Comments Potassium Level (test code = 2823-3) 3.7 3.5-5.1 [facility] CenterChloride Udgza7069-97-52 15:26:00* Test Item Value Reference Range Interpretation Comments Chloride Level (test code = 2075-0) 107 98-107 [facility] CenterCarbon Dioxide Tashg4941-44-97 15:26:00* Test Item Value Reference Range Interpretation Comments Carbon Dioxide Level (test code = 2028-9) 23 22-29 [facility] CenterAnion Zdd7899-69-72 15:26:00* Test Item Value Reference Range Interpretation Comments Anion Gap (test code = 10606-0) 12.7 8-16 [facility] CenterBlood Urea Wyqdysgm5220-35-88 15:26:00* Test Item Value Reference Range Interpretation Comments Blood Urea Nitrogen (test code = 3094-0) 8 7-26 [facility] CenterCreatinine2018-04-11 15:26:00* Test Item Value Reference Range Interpretation Comments Creatinine (test code = 2160-0) 0.84 0.57-1.11 [facility] CenterBUN/Creatinine Dbnkm0869-72-45 15:26:00* Test Item Value Reference Range Interpretation Comments BUN/Creatinine Ratio (test code = 3097-3) 10 6-25 [facility] CenterEstimat Glomerular Filtration Rate 2018-01-05 15:26:00* Test Item Value Reference Range Interpretation Comments Estimat Glomerular Filtration Rate (test code = 90398-3) 60- >60 Ranges were taken from the National Kidney Disease Education Program and the [facility] Kidney Foundation literature.Reference ranges:60 or greater: Ltgerz46-73 ( for 3 consecutive months): Chronic kidney disease 15 or less: Kidney failureSaint Mark's Medical CenterGlucose Hftie2186-33-02 15:26:00* Test Item Value Reference Range Interpretation Comments Glucose Level (test code = GSO1650) 123 74-118 H [facility] CenterCalcium Sgiag1224-34-74 15:26:00* Test Item Value Reference Range Interpretation Comments Calcium Level (test code = 55097-3) 9.9 8.4-10.2 [facility] CenterTotal Nzdkoyzwz3290-60-72 15:26:00* Test Item Value Reference Range Interpretation Comments Total Bilirubin (test code = 1975-2) 0.8 0.2-1.2 [facility] CenterAspartate Amino Transf (AST/SGOT) 2018-01-05 15:26:00* Test Item Value Reference Range Interpretation Comments Aspartate Amino Transf (AST/SGOT) (test code = Aspartate Amino Transf (AST/SGOT)) 20 5-34 [facility] CenterAlanine Aminotransferase (ALT/SGPT) 2018-01-05 15:26:00* Test Item Value Reference Range Interpretation Comments Alanine Aminotransferase (ALT/SGPT) (test code = 1742-6) 23 0-55 [facility] CenterTotal Qkqvdvs3665-51-03 15:26:00* Test Item Value Reference Range Interpretation Comments Total Protein (test code = 2885-2) 8.0 6.5-8.1 [facility] CenterAlbumin2018-04-11 15:26:00* Test Item Value Reference Range Interpretation Comments Albumin (test code = 1751-7) 4.2 3.5-5.0 [facility] CenterGlobulin2018-04-11 15:26:00* Test Item Value Reference Range Interpretation Comments Globulin (test code = 43371-2) 3.8 2.3-3.5 H [facility] CenterAlbumin/Globulin Cpiql4416-68-43 15:26:00 * Test Item Value Reference Range Interpretation Comments Albumin/Globulin Ratio (test code = 1759-0) 1.1 0.8-2.0 [facility] CenterAlkaline Fkpknyboqxk2058-73-36 15:26:00* Test Item Value Reference Range Interpretation Comments Alkaline Phosphatase (test code = 6768-6) 121 40-150 [facility] CenterCreatine Ijsawf2914-41-90 15:26:00* Test Item Value Reference Range Interpretation Comments Creatine Kinase (test code = 2157-6) 64 29-168 [facility] CenterPhosphorus Xsatl7881-86-53 15:24:00* Test Item Value Reference Range Interpretation Comments Phosphorus Level (test code = TNX8618) 1.5 2.3-4.7 L [facility] CenterMagnesium Hjbut0881-14-78 15:24:00* Test Item Value Reference Range Interpretation Comments Magnesium Level (test code = 65231-3) 2.2 1.3-2.1 H [facility] CenterD-Dimer Quantitative (PE/DVT)2018-01-05 15:20:00* Test Item Value Reference Range Interpretation Comments D-Dimer Quantitative (PE/DVT) (test code = 34340-7) 0.32 0. 00-0.45 As with all in vitro diagnostic tests, the test results should be interpreted by the physician in conjunction with clinical findings and other test results.Test results are reported in NEW D-dimer units(ug/mLFEU).[facility] [facility] CenterProthrombin Olqk0689-65-16 15:18:00* Test Item Value Reference Range Interpretation Comments Prothrombin Time (test code = 5902-2) 13.2 11.9-14.5 [facility] CenterProthromb Time International Ratio 2018-01-05 15:18:00* Test Item Value Reference Range Interpretation Comments Prothromb Time International Ratio (test code = 6301-6) 1.08 Oral Anticoagulant Therapy INR Values:1. Low Intensity Therapy 1.5 - 2.02 . Moderate Intensity Therapy 2.0 - 3.03. High Intensity Therapy(1) 2.5 - 3. 54. High Intensity Therapy(2) 3.0 - 4.05. Panic Value INR > 5.0 [facility] CenterActivated Partial Thromboplast Time 2018-01-05 15:18:00* Test Item Value Reference Range Interpretation Comments Activated Partial Thromboplast Time (test code = 29001-1) 26.6 23.8-35.5 [facility] CenterHuman Chorionic Gonadotropin, Qual 2018-01-05 15:18:00* Test Item Value Reference Range Interpretation Comments Human Chorionic Gonadotropin, Qual (test code = 2118-8) NEGATIVE NEGATIVE [facility] CenterWhite Blood Ozdfl5426-48-86 15:08:00* Test Item Value Reference Range Interpretation Comments White Blood Count (test code = 6690-2) 6.17 4.8-10.8 [facility] CenterRed Blood Nftsn6554-62-35 15:08:00* Test Item Value Reference Range Interpretation Comments Red Blood Count (test code = 789-8) 4.54 3.6-5.1 [facility] CenterHemoglobin2018-04-11 15:08:00* Test Item Value Reference Range Interpretation Comments Hemoglobin (test code = 08689-7) 13.7 12.0-16.0 [facility] CenterHematocrit2018-04-11 15:08:00* Test Item Value Reference Range Interpretation Comments Hematocrit (test code = 4544-3) 39.9 34.2-44.1 [facility] CenterMean Corpuscular Irsznf2371-56-64 15:08:00* Test Item Value Reference Range Interpretation Comments Mean Corpuscular Volume (test code = 787-2) 87.9 81-99 [facility] CenterMean Corpuscular Rdazkefhrp6918-82-04 15:08:00* Test Item Value Reference Range Interpretation Comments Mean Corpuscular Hemoglobin (test code = 785-6) 30.2 28-32 [facility] CenterMean Corpuscular Hemoglobin Concent 2018-01-05 15:08:00* Test Item Value Reference Range Interpretation Comments Mean Corpuscular Hemoglobin Concent (test code = 786-4) 34.3 31-35 [facility] CenterRed Cell Distribution Dbuyx2217-46-52 15:08:00* Test Item Value Reference Range Interpretation Comments Red Cell Distribution Width (test code = 78977-0) 12.7 11.7 -14.4 [facility] CenterPlatelet Wlnlj5936-08-62 15:08:00* Test Item Value Reference Range Interpretation Comments Platelet Count (test code = 777-3) 307 140-360 [facility] CenterNeutrophils (%) (Auto)2018-01-05 15:08:00 * Test Item Value Reference Range Interpretation Comments Neutrophils (%) (Auto) (test code = 12454-4) 53.9 38.7-80.0 [facility] CenterLymphocytes (%) (Auto)2018-01-05 15:08:00 * Test Item Value Reference Range Interpretation Comments Lymphocytes (%) (Auto) (test code = 736-9) 36.8 18.0-39.1 [facility] CenterMonocytes (%) (Auto)2018-01-05 15:08:00* Test Item Value Reference Range Interpretation Comments Monocytes (%) (Auto) (test code = 5905-5) 7.6 4.4-11.3 [facility] CenterEosinophils (%) (Auto)2018-01-05 15:08:00 * Test Item Value Reference Range Interpretation Comments Eosinophils (%) (Auto) (test code = 713-8) 1.0 0.0-6.0 [facility] CenterBasophils (%) (Auto)2018-01-05 15:08:00* Test Item Value Reference Range Interpretation Comments Basophils (%) (Auto) (test code = 706-2) 0.5 0.0-1.0 [facility] CenterIM GRANULOCYTES %2018-01-05 15:08:00* Test Item Value Reference Range Interpretation Comments IM GRANULOCYTES % (test code = IM GRANULOCYTES %) 0.2 0.0- 1.0 [facility] CenterNeutrophils # (Auto)2018-01-05 15:08:00* Test Item Value Reference Range Interpretation Comments Neutrophils # (Auto) (test code = 751-8) 3.3 2.1-6.9 [facility] CenterLymphocytes # (Auto)2018-01-05 15:08:00* Test Item Value Reference Range Interpretation Comments Lymphocytes # (Auto) (test code = 87419-1) 2.3 1.0-3.2 [facility] CenterMonocytes # (Auto)2018-01-05 15:08:00* Test Item Value Reference Range Interpretation Comments Monocytes # (Auto) (test code = 742-7) 0.5 0.2-0.8 [facility] CenterEosinophils # (Auto)2018-01-05 15:08:00* Test Item Value Reference Range Interpretation Comments Eosinophils # (Auto) (test code = 711-2) 0.1 0.0-0.4 [facility] CenterBasophils # (Auto)2018-01-05 15:08:00* Test Item Value Reference Range Interpretation Comments Basophils # (Auto) (test code = 704-7) 0.0 0.0-0.1 [facility] CenterAbsolute Immature Granulocyte (auto 2018-01-05 15:08:00* Test Item Value Reference Range Interpretation Comments Absolute Immature Granulocyte (auto (veronica t code = Absolute Immature Granulocyte (auto) 0.01 0-0.1 [facility] CenterBlood Tkljqwm4397-47-85 22:00:00* Test Item Value Reference Range Interpretation Comments Blood Culture (test code = 32853802) NO GROWTH AFTER 5 DAYS, FINAL REPORT [facility] CenterB-Type Natriuretic Otdhzef5148-24-60 12:29:00* Test Item Value Reference Range Interpretation Comments B-Type Natriuretic Peptide (test code = 93481-9) 36.8 0-100 [facility] Wxyoq5262-28-40 11:52:00* Test Item Value Reference Range Interpretation Comments Sodium Level (test code = 2951-2) 140 136-145 [facility] CenterPotassium Ciwup2434-58-25 11:52:00* Test Item Value Reference Range Interpretation Comments Potassium Level (test code = 2823-3) 3.6 3.5-5.1 [facility] CenterChloride Aoalx0168-61-89 11:52:00* Test Item Value Reference Range Interpretation Comments Chloride Level (test code = 2075-0) 110 98-107 H [facility] CenterCarbon Dioxide Tgnnd5240-78-50 11:52:00* Test Item Value Reference Range Interpretation Comments Carbon Dioxide Level (test code = 2028-9) 21 22-29 L [facility] CenterAnion Jiu0093-58-64 11:52:00* Test Item Value Reference Range Interpretation Comments Anion Gap (test code = 11595-0) 12.6 8-16 [facility] CenterBlood Urea Wsorboiz5586-56-42 11:52:00* Test Item Value Reference Range Interpretation Comments Blood Urea Nitrogen (test code = 3094-0) 5 7-26 L [facility] CenterCreatinine2018-02-04 11:52:00* Test Item Value Reference Range Interpretation Comments Creatinine (test code = 2160-0) 0.88 0.57-1.11 [facility] CenterBUN/Creatinine Yzjtc8400-60-77 11:52:00* Test Item Value Reference Range Interpretation Comments BUN/Creatinine Ratio (test code = 3097-3) 6 6-25 [facility] CenterEstimat Glomerular Filtration Rate 2017-10-31 11:52:00* Test Item Value Reference Range Interpretation Comments Estimat Glomerular Filtration Rate (test code = 60759-9) 60- >60 Ranges were taken from the National Kidney Disease Education Program and the [facility] Kidney Foundation literature.Reference ranges:60 or greater: Dmksdo66-90 ( for 3 consecutive months): Chronic kidney disease 15 or less: Kidney failureSaint Mark's Medical CenterGlucose Vdiun5398-30-73 11:52:00* Test Item Value Reference Range Interpretation Comments Glucose Level (test code = JBP4406) 84 74-118 [facility] CenterCalcium Qbkua0807-98-63 11:52:00* Test Item Value Reference Range Interpretation Comments Calcium Level (test code = 15097-9) 8.5 8.4-10.2 [facility] CenterMagnesium Yoijb5055-85-93 11:52:00* Test Item Value Reference Range Interpretation Comments Magnesium Level (test code = 11232-1) 1.9 1.3-2.1 [facility] CenterWhite Blood Degds3018-14-22 11:41:00* Test Item Value Reference Range Interpretation Comments White Blood Count (test code = 6690-2) 5.82 4.8-10.8 [facility] CenterRed Blood Cpitt0768-77-48 11:41:00* Test Item Value Reference Range Interpretation Comments Red Blood Count (test code = 789-8) 3.95 3.6-5.1 [facility] CenterHemoglobin2018-02-04 11:41:00* Test Item Value Reference Range Interpretation Comments Hemoglobin (test code = 52543-1) 11.7 12.0-16.0 L [facility] CenterHematocrit2018-02-04 11:41:00* Test Item Value Reference Range Interpretation Comments Hematocrit (test code = 4544-3) 35.3 34.2-44.1 [facility] CenterMean Corpuscular Vscnny3272-43-78 11:41:00* Test Item Value Reference Range Interpretation Comments Mean Corpuscular Volume (test code = 787-2) 89.4 81-99 [facility] CenterMean Corpuscular Xxskhoeptr3156-77-29 11:41:00* Test Item Value Reference Range Interpretation Comments Mean Corpuscular Hemoglobin (test code = 785-6) 29.6 28-32 [facility] CenterMean Corpuscular Hemoglobin Concent 2017-10-31 11:41:00* Test Item Value Reference Range Interpretation Comments Mean Corpuscular Hemoglobin Concent (test code = 786-4) 33.1 31-35 [facility] CenterRed Cell Distribution Pswne4288-72-95 11:41:00* Test Item Value Reference Range Interpretation Comments Red Cell Distribution Width (test code = 23935-6) 13.2 11.7 -14.4 [facility] CenterPlatelet Mqyvu7229-06-55 11:41:00* Test Item Value Reference Range Interpretation Comments Platelet Count (test code = 777-3) 232 140-360 [facility] CenterNeutrophils (%) (Auto)2017-10-31 11:41:00 * Test Item Value Reference Range Interpretation Comments Neutrophils (%) (Auto) (test code = 84382-5) 64.4 38.7-80.0 [facility] CenterLymphocytes (%) (Auto)2017-10-31 11:41:00 * Test Item Value Reference Range Interpretation Comments Lymphocytes (%) (Auto) (test code = 736-9) 22.5 18.0-39.1 [facility] CenterMonocytes (%) (Auto)2017-10-31 11:41:00* Test Item Value Reference Range Interpretation Comments Monocytes (%) (Auto) (test code = 5905-5) 11.3 4.4-11.3 [facility] CenterEosinophils (%) (Auto)2017-10-31 11:41:00 * Test Item Value Reference Range Interpretation Comments Eosinophils (%) (Auto) (test code = 713-8) 1.4 0.0-6.0 [facility] CenterBasophils (%) (Auto)2017-10-31 11:41:00* Test Item Value Reference Range Interpretation Comments Basophils (%) (Auto) (test code = 706-2) 0.2 0.0-1.0 [facility] CenterIM GRANULOCYTES %2017-10-31 11:41:00* Test Item Value Reference Range Interpretation Comments IM GRANULOCYTES % (test code = IM GRANULOCYTES %) 0.2 0.0- 1.0 [facility] CenterNeutrophils # (Auto)2017-10-31 11:41:00* Test Item Value Reference Range Interpretation Comments Neutrophils # (Auto) (test code = 751-8) 3.8 2.1-6.9 [facility] CenterLymphocytes # (Auto)2017-10-31 11:41:00* Test Item Value Reference Range Interpretation Comments Lymphocytes # (Auto) (test code = 82371-2) 1.3 1.0-3.2 [facility] CenterMonocytes # (Auto)2017-10-31 11:41:00* Test Item Value Reference Range Interpretation Comments Monocytes # (Auto) (test code = 742-7) 0.7 0.2-0.8 [facility] CenterEosinophils # (Auto)2017-10-31 11:41:00* Test Item Value Reference Range Interpretation Comments Eosinophils # (Auto) (test code = 711-2) 0.1 0.0-0.4 [facility] CenterBasophils # (Auto)2017-10-31 11:41:00* Test Item Value Reference Range Interpretation Comments Basophils # (Auto) (test code = 704-7) 0.0 0.0-0.1 [facility] CenterAbsolute Immature Granulocyte (auto 2017-10-31 11:41:00* Test Item Value Reference Range Interpretation Comments Absolute Immature Granulocyte (auto (veronica t code = Absolute Immature Granulocyte (auto) 0.01 0-0.1 [facility] CenterBlood Ivjazam1698-39-15 22:00:00* Test Item Value Reference Range Interpretation Comments Blood Culture (test code = 40342739) NO GROWTH AFTER 24 HOURS [facility] CenterCreatine Zeyiqx6342-94-83 16:06:00* Test Item Value Reference Range Interpretation Comments Creatine Kinase (test code = 2157-6) 67 29-168 [facility] CenterCreatine Kinase GZ4589-91-27 16:06:00* Test Item Value Reference Range Interpretation Comments Creatine Kinase MB (test code = 77397-1) 0.40 0.00-5.00 [facility] CenterTroponin M1371-10-77 16:06:00* Test Item Value Reference Range Interpretation Comments Troponin I (test code = 94194-3) -0.001 0-0.300 [facility] Nfbvporpp4442-69-59 05:47:00* Test Item Value Reference Range Interpretation Comments Total Bilirubin (test code = 1975-2) 0.8 0.2-1.2 [facility] CenterAspartate Amino Transf (AST/SGOT) 2017-10-30 05:47:00* Test Item Value Reference Range Interpretation Comments Aspartate Amino Transf (AST/SGOT) (test code = Aspartate Amino Transf (AST/SGOT)) 15 5-34 [facility] CenterAlanine Aminotransferase (ALT/SGPT) 2017-10-30 05:47:00* Test Item Value Reference Range Interpretation Comments Alanine Aminotransferase (ALT/SGPT) (test code = 1742-6) 18 0-55 [facility] CenterTotal Inkgcjr0324-97-77 05:47:00* Test Item Value Reference Range Interpretation Comments Total Protein (test code = 2885-2) 5.9 6.5-8.1 L [facility] CenterAlbumin2018-02-03 05:47:00* Test Item Value Reference Range Interpretation Comments Albumin (test code = 1751-7) 3.2 3.5-5.0 L [facility] CenterGlobulin2018-02-03 05:47:00* Test Item Value Reference Range Interpretation Comments Globulin (test code = 73102-8) 2.7 2.3-3.5 [facility] CenterAlbumin/Globulin Kwbzd5103-81-51 05:47:00 * Test Item Value Reference Range Interpretation Comments Albumin/Globulin Ratio (test code = 1759-0) 1.2 0.8-2.0 [facility] CenterAlkaline Bmwkqawptqe7277-84-22 05:47:00* Test Item Value Reference Range Interpretation Comments Alkaline Phosphatase (test code = 6768-6) 86 40-150 [facility] CenterActivated Partial Thromboplast Time 2017-10-30 05:41:00* Test Item Value Reference Range Interpretation Comments Activated Partial Thromboplast Time (test code = 91709-4) 27.8 23.8-35.5 [facility] CenterThyroid Stimulating Hormone (TSH) 2017-10-29 22:29:00* Test Item Value Reference Range Interpretation Comments Thyroid Stimulating Hormone (TSH) (test code = 42819-7) 5.253 0.350-4.940 H [facility] CenterD-Dimer Quantitative (PE/DVT)2017-10-29 22:04:00* Test Item Value Reference Range Interpretation Comments D-Dimer Quantitative (PE/DVT) (test code = 50278-9) 0.38 0. 00-0.45 As with all in vitro diagnostic tests, the test results should be interpreted by the physician in conjunction with clinical findings and other test results.Test results are reported in NEW D-dimer units(ug/mLFEU).[facility] CenterLactic Acid Yxmpx1064-93-57 22:03:00* Test Item Value Reference Range Interpretation Comments Lactic Acid Level (test code = Lactic Acid Level) 19.2 4.5- 19.8 [facility] CenterLactic Acid Thgga6539-27-77 22:03:00* Test Item Value Reference Range Interpretation Comments Lactic Acid Level (test code = Lactic Acid Level) 19.2 4.5- 19.8 [facility] CenterProthrombin Ommc9896-03-21 22:02:00* Test Item Value Reference Range Interpretation Comments Prothrombin Time (test code = 5902-2) 14.2 11.9-14.5 [facility] CenterProthromb Time International Ratio 2017-10-29 22:02:00* Test Item Value Reference Range Interpretation Comments Prothromb Time International Ratio (test code = 6301-6) 1.05 Oral Anticoagulant Therapy INR Values:1. Low Intensity Therapy 1.5 - 2.02 . Moderate Intensity Therapy 2.0 - 3.03. High Intensity Therapy(1) 2.5 - 3. 54. High Intensity Therapy(2) 3.0 - 4.05. Panic Value INR > 5.0 [facility] TKF4110-29-77 16:43:00* Test Item Value Reference Range Interpretation Comments Urine WBC (test code = 5821-4) 0-5 0-5 [facility] KTP8368-46-13 16:43:00* Test Item Value Reference Range Interpretation Comments Urine RBC (test code = 17660-0) 50- 0-5 H [facility] Ogvclynw8120-51-43 16:43:00* Test Item Value Reference Range Interpretation Comments Urine Bacteria (test code = 55401-2) MANY NONE H [facility] Epithelial Hadao3161-52-96 16:43:00 * Test Item Value Reference Range Interpretation Comments Urine Epithelial Cells (test code = 72775-2) MODERATE NONE [facility] Transitional Epithelial Cells 2017-10-29 16:43:00* Test Item Value Reference Range Interpretation Comments Urine Transitional Epithelial Cells (test code = 8249-5) FEW NONE H [facility] JQB0750-04-11 16:43:00* Test Item Value Reference Range Interpretation Comments Urine WBC (test code = 5821-4) 0-5 0-5 [facility] CenterUrine KDQ3493-11-99 16:43:00* Test Item Value Reference Range Interpretation Comments Urine RBC (test code = 24121-0) 50- 0-5 H [facility] Tmpcrzhc5464-00-97 16:43:00* Test Item Value Reference Range Interpretation Comments Urine Bacteria (test code = 25083-6) MANY NONE H [facility] CenterUrine Epithelial Hvixc8293-19-16 16:43:00 * Test Item Value Reference Range Interpretation Comments Urine Epithelial Cells (test code = 89200-9) MODERATE NONE [facility] Transitional Epithelial Cells 2017-10-29 16:43:00* Test Item Value Reference Range Interpretation Comments Urine Transitional Epithelial Cells (test code = 8249-5) FEW NONE H [facility] CenterUrine Uevc1585-48-61 16:31:00* Test Item Value Reference Range Interpretation Comments Urine Test (test code = 2106-3) NEGATIVE NEGATIVE [facility] CenterUrine Lqdv1159-03-91 16:31:00* Test Item Value Reference Range Interpretation Comments Urine Test (test code = 2106-3) NEGATIVE NEGATIVE [facility] CenterUrine Qmqmk6744-22-83 16:30:00* Test Item Value Reference Range Interpretation Comments Urine Color (test code = 5778-6) SHIRA YELLOW H [facility] CenterUrine Wekxdcs3258-97-57 16:30:00* Test Item Value Reference Range Interpretation Comments Urine Clarity (test code = 59382-9) SL CLOUDY CLEAR [facility] CenterUrine Specific Oxtpwql7010-80-62 16:30:00 * Test Item Value Reference Range Interpretation Comments Urine Specific [place] (test code = 5811-5) 1.030 1.010-1.02 5 H [facility] CenterUrine cD2584-69-60 16:30:00* Test Item Value Reference Range Interpretation Comments Urine pH (test code = 12580-6) 5 5-7 [facility] CenterUrine Leukocyte Mebgigun9896-61-48 16:30:00* Test Item Value Reference Range Interpretation Comments Urine Leukocyte Esterase (test code = 5799-2) 1+ NEGATIVE H [facility] CenterUrine Jlxcpqx9177-22-36 16:30:00* Test Item Value Reference Range Interpretation Comments Urine Nitrite (test code = 78558-8) NEGATIVE NEGATIVE [facility] CenterUrine Ezfuvba6285-06-63 16:30:00* Test Item Value Reference Range Interpretation Comments Urine Protein (test code = 5804-0) TRACE NEGATIVE [facility] Glucose (UA)2017-10-29 16:30:00* Test Item Value Reference Range Interpretation Comments Urine Glucose (UA) (test code = 2349-9) NEGATIVE NEGATIVE [facility] CenterUrine Kryoyvn2718-15-31 16:30:00* Test Item Value Reference Range Interpretation Comments Urine Ketones (test code = 24145-6) 3+ NEGATIVE H [facility] CenterUrine Aabloasahbbd2310-23-23 16:30:00* Test Item Value Reference Range Interpretation Comments Urine Urobilinogen (test code = 43424-5) 1 0.2-1 [facility] CenterUrine Adztlqnxr5502-68-82 16:30:00* Test Item Value Reference Range Interpretation Comments Urine Bilirubin (test code = 1978-6) 1+ NEGATIVE H [facility] CenterUrine Wwoiq1605-62-28 16:30:00* Test Item Value Reference Range Interpretation Comments Urine Blood (test code = 99732-3) 3+ NEGATIVE H [facility] CenterUrine Jhkel4988-07-88 16:30:00* Test Item Value Reference Range Interpretation Comments Urine Color (test code = 5778-6) SHIRA YELLOW H [facility] CenterUrine Yrhuowj0877-12-09 16:30:00* Test Item Value Reference Range Interpretation Comments Urine Clarity (test code = 09589-8) SL CLOUDY CLEAR [facility] CenterUrine Specific Uqirqzw4262-71-91 16:30:00 * Test Item Value Reference Range Interpretation Comments Urine Specific [place] (test code = 5811-5) 1.030 1.010-1.02 5 H [facility] CenterUrine cX7207-39-10 16:30:00* Test Item Value Reference Range Interpretation Comments Urine pH (test code = 85934-4) 5 5-7 [facility] CenterUrine Leukocyte Nvzqmhqd0858-97-94 16:30:00* Test Item Value Reference Range Interpretation Comments Urine Leukocyte Esterase (test code = 5799-2) 1+ NEGATIVE H [facility] CenterUrine Lvvumdz8722-38-34 16:30:00* Test Item Value Reference Range Interpretation Comments Urine Nitrite (test code = 01093-8) NEGATIVE NEGATIVE [facility] CenterUrine Yictzxf3785-40-14 16:30:00* Test Item Value Reference Range Interpretation Comments Urine Protein (test code = 5804-0) TRACE NEGATIVE H [facility] CenterUrine Glucose (UA)2017-10-29 16:30:00* Test Item Value Reference Range Interpretation Comments Urine Glucose (UA) (test code = 2349-9) NEGATIVE NEGATIVE [facility] CenterUrine Thioosd2284-46-22 16:30:00* Test Item Value Reference Range Interpretation Comments Urine Ketones (test code = 69053-9) 3+ NEGATIVE [facility] Tmqbyemomgvi8772-64-92 16:30:00* Test Item Value Reference Range Interpretation Comments Urine Urobilinogen (test code = 82722-6) 1 0.2-1 [facility] Sxjdayavm2795-98-82 16:30:00* Test Item Value Reference Range Interpretation Comments Urine Bilirubin (test code = 1978-6) 1+ NEGATIVE H [facility] HospitalUrine Rospg2119-96-13 16:30:00* Test Item Value Reference Range Interpretation Comments Urine Blood (test code = 61160-3) 3+ NEGATIVE H [facility] HospitalCHE[facility]INGLE ([facility]) [place] [address] Patient Name: CAROLYN COX I MR #: [id number] : 1990 Age/Sex: 27/F Req #: [id number] Adm Physician: Ordered by: PETE JENNINGS MD Report #: [id number] [facility]: [facility]/Bed: Procedure: [id number] DX/CHEST SINGLE (PORTAB LE) Exam Date: Exam Time: REPORT STATUS: Sig christiano PROCEDURE: A single AP view of the chest. COMPARISON: None. INDICATIONS: SOB, CP A FIB YESTERDAY FINDINGS: Lines/tubes: None. Lungs: The lungs are well inflated and clear. There is no evidence of pneumonia or pulmonary edema. Pleura: There is no pleural effusion or p neumothorax. Heart and mediastinum: The heart and the mediastinum are unr emarkable. Bones: No acute bony abnormality. IMPRESSION: No acut e cardiopulmonary disease. Dictated by: Vinnie Bermudez M.D. on 01/05/2018 at 15:08 Electronically approved by: Vinnie Bermudez M.D. on 01/05/2018 at 15:08 Dictated By: VINNIE BERMUDEZ MD 1508 Transcribed By: MELIDA on 01/05/18 1508 COPY TO: PETE JENNINGS MD ABDOMEN-1VIEW (KU) [place] [address] Patient Name: CAROLYN COX I MR #: [id number] : 1990 Age/Sex: 27/F Req #: [id number] Adm Physician: MARIPOSA HASTINGS MD Ordered by: JORDAN RIZZO MD Report #: [id number] Location: [facility] Room/Bed: [place] [address] Procedure: [id number] DX/ABDOMEN-1VIEW (KU) Exam Date: 10/30/17 Exam Ti me: 1700 REPORT STATUS: Signed EXAM: Abdomen, one view INDICATIO N: Pain. COMPARISON: None available. FINDINGS: LINES: None. Bowel: No air fluid levels.. No pneumoperitoneum.. Moderate amount of re tained feces and air are noted in the colon and rectum. No calcifications p roject over the renal shadows, expected course of the ureters bilaterally, and bladder. Phleboliths are present in the pelvis Soft tissues: Normal. Bones: No acute osseous abnormality. Impression: No acute radiographic abnormality. Signed by: Dr. Chato Zepeda M.D. on 10/30/2017 5:26 PM Dictated By: CHATO ZEPEDA MD 25 COPY TO: JORDAN RIZZO MD CHEST SINGLE (PORTABLE) [place] [address] Patient Name: CAROLYN COX I MR #: [id number] : 1990 Age/Sex: 27/F Req #: [id number] Adm Physician: Ordered by: NASREEN MILLER MD Report #: [id number] Location: ER Room/Bed: Procedure: [id number] DX/CHEST SINGLE (PORTABLE) Exam Date: Exam Time: REPORT STATUS: Signed EXAM: CHEST SINGLE (PORTABLE), AP 1 view ORDER DATE: 10/29/2017 9:25 PM Time stamp on exam: 2138 hours INDICATION: New onset A. fib COMPARISON: None FINDINGS: LINES/TUBES: None LUNGS: No consolidations or edema. Mild bib asilar atelectasis. PLEURA: No effusions or pneumothorax. HEART AND ME DIASTINUM: Normal size and contour. BONES AND SOFT TISSUES: No acute findin gs. IMPRESSION: Mild bibasilar atelectasis. Signed by: Dr. Willa Villalobos M.D. on 10/29/2017 10:09 PM Dictated By: AUGUSTO VILLALOBOS MD 08 Transcribed By: SHAVONNE MARIE on 10/29/172208 COPY TO: NASREEN MILLER MD CT ABDOMEN/PELVIS WO [place] [address] Patient Name: CAROLYN COX I MR #: [id number] : 1990 Age/Sex: 27/F Req #: [id number] Adm Physician: Ordered by: JOSH THOMASON Report #: [id number] Location: ER Room/Bed: Procedure: [id number] CT/CT ABDOMEN/PELVIS WO E xam Date: Exam Time: REPORT STATUS: Signed PROCEDURE: CT ABDOMEN AND PELVIS WITHOUT CONTRAST TECHNIQUE: The abdom en and pelvis were scanned utilizing a multidetector helical scanner from the diaphragm to the lesser trochanter after the oral administration of water. No IV contrast was administered per protocol. Coronal and sagittal multiplanar reformations were obtained. COMPARISON: [facility], CT, CT ABDOMEN/PELVIS WO, 01/21/2014, 22:23. INDICATIONS: RIGHT SIDE FLANK P AIN, STONE PROTOCOL FINDINGS: ABSENCE OF INTRAVENOUS CONTRAST DECREA SES SENSITIVITY FOR DETECTION OF FOCAL LESIONS AND VASCULAR PATHOLOGY. LOWER THORAX: Unremarkable HEPATOBILIARY: A wedge-shaped hypodensity along the falciform ligament likely represents focal fatty infiltration (series 3, image 47). No other focal lesions. No biliary ductal dilation. Gallbladder is unremarkable. SPLEEN: No splenomegaly. PANCREAS: No focal masses or david michael dilatation. ADRENALS: No adrenal nodules. KIDNEYS/URETERS: 3 mm calc ulus in the distal right ureter just proximal to the right UVJ (series 3, noemí ge 140), which results in mild right hydronephrosis. Punctate, nonobstructi ng calculus in the interpolar region of the right kidney (series 3, image 47 and coronal image 82). No other renal or ureteral calculi. No left hydronephr osis or obstruction. 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 No renal contour abnormalities. PELVIC ORGANS/BLADDER: Bladder is unremarkable, without focal lesions or freda culi. The uterus is unremarkable. No adnexal masses.. PERITONEUM / RETROPE RITONEUM: No free air or fluid. LYMPH NODES: No lymphadenopathy. VESSELS: Un remarkable for noncontrast exam. GI TRACT: No bowel dilation or evidence o f obstruction. No pericolonic inflammatory changes. Postoperative changes in the stomach. BONES AND SOFT TISSUES: No aggressive lytic lesion. Soft tiss ues are unremarkable.. IMPRESSION: 1. 3 mm mildly obstructing freda culus in the distal right ureter just proximal to the right UVJ, which result s in mild right hydronephrosis. 2. Punctate nonobstructing calculus in the int erpolar region of the right kidney. No other renal or ureteral calculi. No le ft hydronephrosis or obstruction. 3. 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 Chuck Galan M.D. Dictated by : Chuck Galan M.D. on 10/29/2017 at 18:30 Electronically approved by: Chuck Galan M.D. on 10/29/2017 at 18:30 Dictated By : CHUCK GALAN MD 183 0 Transcribed By: MELIDA on 10/29/17 1830 COPY TO: JOSH THOMASON
--- OUTSIDE RECORDS SUMMARY | 2020-05-11 17:55 | XMS REPORT | Clinical Summary ---
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 Active multivitamin per tablet Take 1 tablet 0 by mouth daily. Active ergocalciferol (VITAMIN Take 50,000 0 D2) 50,000 unit capsule Units by mouth once a week. Active MEDROXYPROGESTERONE Inject 0 ACETATE (DEPO-PROVERA IM) intramuscular ly. Active apixaban (ELIQUIS) 5 mg Take 1 tablet 30 tablet 0 Tab tablet (5 mg total) 8 by mouth 2 (two) times daily. Active Problems Problem Noted Date Abnormal stress test 01/20/2018 Social History Date Tobacco Use Types Packs/Day Years Used Never Smoker Smokeless Tobacco: Never Used Alcohol Use Drinks/Week oz/Week Comments No Sex Assigned at Date Recorded Not on file Industry Job Start Date Occupation Not on file Not on file Not on file Travel End Travel History Travel Start No recent travel history available. Last Filed Vital Signs Not on file Plan of Treatment Not on file Results Not on fileafter 05/11/2019 Insurance Payer Benefit Subscriber ID Type Phone Address Plan / Group [employer] - [employer]GD CARE CIGNA xxxxxxxxxxx HMO/POS [facility] [address] ([address] [place] [phone] Advance Directives For more information, please contact: [address] [address] Date Inactivated Comments Code Status Date Activated 01/20/2018 5:15 PM Full Code 01/20/2018 5:52 AM This code status was determined by: Patient
[2020-05-11 18:23] LABS: BASOPHILS % 0.6 % (0.0-1.0); EOSINOPHILS # (AUTO) 0.1 (0.0-0.4); EOSINOPHILS % 1.1 % (0.0-6.0); HEMATOCRIT 38.2 % (34.2-44.1); HEMOGLOBIN 12.7 g/dL (12.0-16.0); LYMPHOCYTES # (AUTO) 2.1 (1.0-3.2); LYMPHOCYTES % 31.9 % (18.0-39.1); MEAN CORPUSCULAR HGB CONC 33.2 g/dL (31-35); MEAN CORPUSCULAR VOLUME 90.1 fL (81-99); MONOCYTES # (AUTO) 0.8 (0.2-0.8); MONOCYTES % 11.9 % (4.4-11.3); NEUTROPHILS # (AUTO) 3.6 (2.1-6.9); NEUTROPHILS % 54.2 % (38.7-80.0); PLATELET COUNT 286 x10e3/uL (140-360); RED BLOOD COUNT 4.24 x10e6/uL (3.6-5.1); RED CELL DISTRIBUTION WIDTH 12.6 % (11.7-14.4)
[2020-05-11 18:29] LABS: CLARITY,URINE HAZY (CLEAR); COLOR,URINE YELLOW (YELLOW); KETONES,URINE TRACE (NEGATIVE); LEUKOCYTE ESTERASE ,URINE NEGATIVE (NEGATIVE); NITRITE,URINE NEGATIVE (NEGATIVE); PROTEIN,URINE DIPSTICK NEGATIVE (NEGATIVE); URINE UROBILINOGEN 0.2 mg/dL (0.2 - 1)
[2020-05-11 18:30] LABS: BACTERIA,URINE FEW /HPF; BILIRUBIN,URINE SMALL (NEGATIVE); EPITHELIAL CELLS,URINE MODERATE /LPF; RBC,URINE 0-5 /HPF (0-5); WBC,URINE (MAN) 0-5 /HPF (0-5)
[2020-05-11 18:40] LABS: ALANINE AMINOTRANSFERASE 21 IU/L (0-55); ALBUMIN 4.1 g/dL (3.5-5.0); ALBUMIN/GLOBULIN RATIO 1.2 (0.8-2.0); ALKALINE PHOSPHATASE 81 IU/L (40-150); BLOOD UREA NITROGEN 19 mg/dL (7-26); BUN/CREATININE RATIO 24 (6-25); CALCIUM 9.4 mg/dL (8.4-10.2); CARBON DIOXIDE 21 mmol/L (22-29); CHLORIDE 109 mmol/L (98-107); EST GLOMERULAR FILTRATION RATE > 60 ML/MIN (60-); GLUCOSE 93 mg/dL (74-118); SODIUM 141 mmol/L (136-145)
[2020-05-11 18:56] LABS: AMYLASE 69 U/L (25-125); LIPASE 49 U/L (8-78)
[2020-05-11] MEDS ORDERED: FENTANYL CITRATE/PF 100MCG/2 ML INJ IV NR (19:00)
--- NOTE | 2020-05-11 19:05 | Emergency Department Note ---
History of Present Illnes History of Present Illness Chief Complaint: Abdominal Complaints History of Present Illness This is a 29 year old female Chief Complaint Comment SENT FROM CLINIC IN [place] TO BE EVALUATED FOR PANCREATITIS AND HAVE AN ULTRASOUND. PAIN DESCRIBED SHARP AND INCREASES WITH MOVEMENT AND FOOD INTAKE X 4 DAYS RIGHT UPPER UPPER QUADRANT PAIN THAT RADIATES TO BACK. INTERMITTENT DIARRHEA AND CONSTIPATION. POSITIVE NAUSEA, NO VOMITING . Historian: Patient Arrival Mode: Car Additional Treatment AIRDROP SYSTEMS TECHNICIAN: NONE Senior Advisory Required: No Location: Mid abdomen Quality: sharp Radiation: Reports back Severity: severe Onset quality: gradual Duration (how long): day(s) (3) Timing of current episode: constant Progression: worsening Chronicity: new Context: Denies recent illness Relieving factors: none Exacerbating factors: none Associated symptoms: Reports other (Diarrhea, constipation) Past Medical/Family History Physician Review I have reviewed the patient's past medical and family history. Any updates have been documented here. Past Medical History Recent Fever: No Clinical Suspicion of Infectio: No New/Unexplained Change in Ment: No Past Medical History: A-Fib Other Medical History: ELEVATED HR Other Surgery: COMPLETE SALINGECTOMY; RT SALPINGECTOMY 08/10/19 Social History Smoking Cessation: Never Smoker Counseling Performed: No Alcohol Use: None Any Illegal Drug Use: No Other Last Tetanus: UTD Any Pre-Existing Lines (PICC,: No Review of Systems Review of Systems Constitutional: Reports no symptoms EENTM: Reports no symptoms Cardiovascular: Reports no symptoms Respiratory: Reports no symptoms Gastrointestinal: Reports as per HPI, Reports abdominal pain Genitourinary: Reports no symptoms Musculoskeletal: Reports no symptoms Integumentary: Reports no symptoms Neurological: Reports no symptoms Psychological: Reports no symptoms Endocrine: Reports no symptoms Hematological/Lymphatic: Reports no symptoms Physical Exam Related Data Allergies: Coded Allergies: cinnamon (Unverified Allergy, Severe, ANAPHYLAXIS, 01/05/18) influenza virus vaccine 6162-8116 (4 yr up) (Verified Allergy, Mild, HIVES, 01/05/18) tramadol (Verified Adverse Reaction, Unknown, VOMITING, 01/05/18) Triage Vital Signs Vital Signs Date Time Temp Pulse Resp B/P (MAP) Pulse Ox O2 Delivery O2 Flow Rate FiO2 05/11/20 17:29 98.4 100 18 140/87 100 Room Air Vital signs reviewed: Yes Physical Exam CONSTITUTIONAL Constitutional: Present well-developed, Present well-nourished HENT HENT: Present normocephalic, Present atraumatic, Present oropharynx clear/moist, Present nose normal HENT L/R: Present left ext ear normal, Present right ext ear normal EYES Eyes: Reports PERRL, Reports conjunctivae normal NECK Neck: Present ROM normal PULMONARY Pulmonary: Present effort normal, Present breath sounds normal CARDIOVASCULAR Cardiovascular: Present regular rhythm, Present heart sounds normal, Present capillary refill normal, Present normal rate GASTROINTESTINAL Abdominal: Present soft, Present bowel sounds normal, Present tender GENITOURINARY Genitourinary: Present exam deferred SKIN Skin: Present warm, Present dry MUSCULOSKELETAL Musculoskeletal: Present ROM normal NEUROLOGICAL Neurological: Present alert, Present oriented x 3, Present no gross motor or sensory deficits PSYCHOLOGICAL Psychological: Present mood/affect normal, Present judgement normal Results Laboratory Result Diagram: 05/11/20 1744 05/11/20 1744 Laboratory Laboratory Tests Test 05/11/20 17:44 White Blood Count 6.55 x10e3/uL (4.8-10.8) Red Blood Count 4.24 x10e6/uL (3.6-5.1) Hemoglobin 12.7 g/dL (12.0-16.0) Hematocrit 38.2 % (34.2-44.1) Mean Corpuscular Volume 90.1 fL (81-99) Mean Corpuscular Hemoglobin 30.0 pg (28-32) Mean Corpuscular Hemoglobin Concent 33.2 g/dL (31-35) Red Cell Distribution Width 12.6 % (11.7-14.4) Platelet Count 286 x10e3/uL (140-360) Neutrophils (%) (Auto) 54.2 % (38.7-80.0) Lymphocytes (%) (Auto) 31.9 % (18.0-39.1) Monocytes (%) (Auto) 11.9 % (4.4-11.3) Eosinophils (%) (Auto) 1.1 % (0.0-6.0) Basophils (%) (Auto) 0.6 % (0.0-1.0) Neutrophils # (Auto) 3.6 (2.1-6.9) Lymphocytes # (Auto) 2.1 (1.0-3.2) Monocytes # (Auto) 0.8 (0.2-0.8) Eosinophils # (Auto) 0.1 (0.0-0.4) Basophils # (Auto) 0.0 (0.0-0.1) Absolute Immature Granulocyte (auto 0.02 x10e3/uL (0-0.1) Urine Color Yellow (YELLOW) Urine Clarity Hazy (CLEAR) Urine pH 5.5 (5 - 7) Urine Specific [place] >=1.030 (1.010-1.025) Urine Protein Negative (NEGATIVE) Urine Glucose (UA) Negative (NEGATIVE) Urine Ketones Trace (NEGATIVE) Urine Blood Negative (NEGATIVE) Urine Nitrite Negative (NEGATIVE) Urine Bilirubin Small (NEGATIVE) Urine Urobilinogen 0.2 mg/dL (0.2 - 1) Urine Leukocyte Esterase Negative (NEGATIVE) Urine RBC 0-5 /HPF (0-5) Urine WBC 0-5 /HPF (0-5) Urine Epithelial Cells Moderate /LPF (NONE) Urine Bacteria Few /HPF (NONE) Sodium Level 141 mmol/L (136-145) Potassium Level 4.0 mmol/L (3.5-5.1) Chloride Level 109 mmol/L (98-107) Carbon Dioxide Level 21 mmol/L (22-29) Anion Gap 15.0 mmol/L (8-16) Blood Urea Nitrogen 19 mg/dL (7-26) Creatinine 0.80 mg/dL (0.57-1.11) Estimat Glomerular Filtration Rate > 60 ML/MIN (60-) BUN/Creatinine Ratio 24 (6-25) Glucose Level 93 mg/dL (74-118) Calcium Level 9.4 mg/dL (8.4-10.2) Total Bilirubin 0.3 mg/dL (0.2-1.2) Aspartate Amino Transf (AST/SGOT) 20 IU/L (5-34) Alanine Aminotransferase (ALT/SGPT) 21 IU/L (0-55) Alkaline Phosphatase 81 IU/L (40-150) Total Protein 7.4 g/dL (6.5-8.1) Albumin 4.1 g/dL (3.5-5.0) Globulin 3.3 g/dL (2.3-3.5) Albumin/Globulin Ratio 1.2 (0.8-2.0) Amylase Level 69 U/L (25-125) Lipase 49 U/L (8-78) Human Chorionic Gonadotropin, Qual Negative (NEGATIVE) Lab results reviewed: Yes Imaging Imaging results reviewed: Yes Assessment & Plan Medical Decision Making MDM 29-year-old female with past history of vertical gastric sleeve presents the emergency department for periumbilical abdominal pain. She has had this in the past. She is recently seen at urgent care and told to come to the emergency department. She states symptoms been ongoing for last 3 days and having worsening. Examination shows tenderness to the chana-umbilical region. There is a differential significant for gastric sleeve palpitation versus appendicitis valeria modesta cholecystitis versus functional abdominal pain. Workup including CT and labs are unremarkable. She was give GI cocktail. Doubt emergent process at this time. I discussed results patient as well as expected disease time course and management. They will follow up with their primary care provider or return to the emergency department for new or worsening symptoms. Patient's appropriate for discharge. Part of this note was dictated with Violette and is subject to recognition errors. Reassessment Reassessment time: 19:05 Reassessment No change, VSS Assessment & Plan Final Impression: (1) Abdominal pain Depart Disposition: HOME, SELF-CARE Last Vital Signs Date Time Temp Pulse Resp B/P (MAP) Pulse Ox O2 Delivery O2 Flow Rate FiO2 05/11/20 17:29 98.4 100 18 140/87 100 Room Air Home Meds Active Scripts Cefuroxime Axetil (CEFUROXIME) 250 Mg Tablet, 500 MG PO Q12H for 10 Days, TAB Prov:VELIA MEHTA NP 10/31/17 Metoprolol Tartrate (LOPRESSOR) 25 Mg Tab, 25 MG PO BID for 60 Days, TAB Prov:VELIA MEHTA NP 10/31/17 [Apixaban] 5 MG TABLET No Conflict Check, 5 MG PO BID for 60 Days Prov:VELIA MEHTA NP 10/31/17 Amiodarone Hcl (AMIODARONE HCL) 200 Mg Tablet, 200 MG PO BID for 60 Days Prov:VELIA MEHTA NP 10/31/17 Famotidine (FAMOTIDINE) 20 Mg Tab, 20 MG PO BIDAC for 60 Days, TAB Prov:VELIA MEHTA NP 10/31/17 Reported Medications Hydrocodone Bit/Acetaminophen (HYDROCODON-ACETAMINOPHEN 5-300) 1 Each Tablet, 1 TAB PO Q4HR PRN for PAIN 05/06/15 Aspirin (ASPIR 81) 81 Mg Tablet.dr, 81 MG PO DAILY 05/05/15 Heparin Sodium,Porcine (HEPARIN SODIUM) 5,000 Unit/1 Ml Vial, 5000 UNITS IV BID, VIAL 05/05/15 Metformin Hcl (METFORMIN HCL) 1,000 Mg Tablet, 2000 MG PO DAILY 05/05/15 Medications in the ED Fentanyl Citrate 50 mcg ONCE IV ; Start 05/11/20 at 19:00; Stop 05/11/20 at 20:00 GRAHAM PRATT MD May 11, 2020 19:05
[2020-05-11] MEDS ORDERED: IOPAMIDOL 370 MG/ML 200 ML INFUS..BTL INJ ONE (19:24)
[2020-05-11] MEDS ORDERED: SODIUM CHLORIDE 0.9% 50ML 50 ML ONE (19:25)
--- NOTE | 2020-05-11 19:29 | NUR ---
Patient was taken to radiology for CT pelvis procedure via stretcher.
--- NOTE | 2020-05-11 20:57 | Diagnostic Imaging Report ---
EXAM: CT Abdomen and Pelvis WITH contrast INDICATION: ^Umbillical abd pain ^[id number] ^[id number] COMPARISON: None available. TECHNIQUE: Abdomen and pelvis were scanned utilizing a multidetector helical scanner from the lung base to the pubic symphysis after administration of IV contrast. Coronal and sagittal reformations were obtained. Dose modulation, iterative reconstruction, and/or weight based adjustment of the mA/kV was utilized to reduce the radiation dose to as low as reasonably achievable. Routine protocol was performed. Scan was performed when during portal venous phase. IV CONTRAST: 100 mL of Isovue-370 ORAL CONTRAST: Water COMPLICATIONS: None RADIATION DOSE: Total DLP: 379.32 mGy*cm Estimated effective dose: (DLP x 0.015 x size factor) mSv CTDIvol has been reviewed. It is below the limits set by the Radiation Protocol Committee (RPC). FINDINGS: LINES and TUBES: None. LOWER THORAX: Unremarkable HEPATOBILIARY: No focal hepatic lesions. No biliary ductal dilation. GALLBLADDER: No radio-opaque stones or sludge. No wall thickening. SPLEEN: No splenomegaly. PANCREAS: No focal masses or ductal dilatation. ADRENALS: No adrenal nodules KIDNEYS/URETERS: Kidneys enhance symmetrically. No hydronephrosis. No cystic or solid mass lesions. No stones. GI TRACT: No abnormal distention, wall thickening, or evidence of bowel obstruction. Appendix is normal. Evidence of gastric surgery. PELVIC ORGANS/BLADDER: Retroverted uterus. Bladder is not distended. Pelvic phleboliths. LYMPH NODES: No lymphadenopathy. VESSELS: Unremarkable. Common origin of celiac axis and SMA. PERITONEUM / RETROPERITONEUM: No free air or fluid. BONES: Unremarkable. SOFT TISSUES: Unremarkable. IMPRESSION: No acute inflammatory process in the abdomen/pelvis. Signed by: Dr. Keith Reynolds MD on 05/11/2020 8:53 PM
[2020-05-11] MEDS ORDERED: DONNATAL/LIDOCAINE/MAALOX 30 ML SUSP PO STA (21:05)
[2020-05-11] MEDS ORDERED: LIDOCAINE VISC 2% SOLN 15 ML UDC ONE (21:18)
[2020-05-11] MEDS ORDERED: BELLADONNA ALK/PHENOBARBITAL 5 ML UDC ONE (21:19)
[2020-05-11] MEDS ORDERED: MAGNESIUM/ALUMINUM/SIMETHICONE 30 ML UDC ONE (21:19)
[2020-05-11 21:21] VITALS: BP 111/58
== END 2020-05-11 21:24 | disposition home or self-care (01) ==
LOC: ER 17:52
DX: R10.11 Right upper quadrant pain (principal); R11.0 Nausea; R19.7 Diarrhea, unspecified; I48.91 Unspecified atrial fibrillation; Z98.84 Bariatric surgery status
CPT/HCPCS: 36415; 74177; 80053; 81001; 82150; 83690; 84702; 85025; 99284; Q9967